=== PATIENT | male | born 1965 | race Caucasian/White ===

== ENCOUNTER 2017-06-27 17:16 | Observation (INO) | payer BC ==
[2017-06-27] MEDS ORDERED: NITROGLYCERIN OINT 1 INCH/GM PACKET TOPICAL STA (17:43)
[2017-06-27] MEDS ORDERED: ASPIRIN 81 MG PO STA (17:43)
--- NOTE | 2017-06-27 17:45 | ED ---
General Adult HPI - General Chief complaint: Chest Pain Stated complaint: Chest pain Time Seen by Provider: 06/27/17 17:20 Source: patient, RN notes reviewed Mode of arrival: ambulatory Limitations: no limitations - History of Present Illness Initial comments: This is a 51-year-old male who presents emergency Department complaining of chest pain intermittently for 2 weeks. Patient states it was subtle and under his left breast but over the last couple of days it is become much more significant and constant. Patient states the pain also goes down his left arm occasionally. Patient denies any shortness of breath or difficulty breathing. Patient denies any headache patient denies numbness weakness per patient denies any lightheadedness dizziness or near syncopal episode. Patient denies any diaphoretic episodes. Patient states he does not know if he has high cholesterol high blood pressure because he does not follow up with physician. Patient states he does smoke however and he has a brother was had multiple heart attacks. Patient denies any abdominal pain. Patient denies nausea vomiting diarrhea. - Related Data Home Medications Medication Instructions Recorded Confirmed No Known Home Medications [No 06/27/17 06/27/17 Known Home Medications] Allergies Allergy/AdvReac Type Severity Reaction Status Date / Time No Known Allergies Allergy Verified 06/27/17 17:37 Review of Systems ROS Statement: Those systems with pertinent positive or pertinent negative responses have been documented in the HPI. ROS Other: All systems not noted in ROS Statement are negative. Past Medical History Past Medical History: No Reported History Additional Past Medical History / Comment(s): rapid heart beat History of Any Multi-Drug Resistant Organisms: None Reported Past Surgical History: Ablation Additional Past Surgical History / Comment(s): ablation Past Psychological History: No Psychological Hx Reported Smoking Status: Current every day smoker Past Alcohol Use History: Occasional Past Drug Use History: None Reported General Exam - General Exam Comments Initial Comments: GENERAL: Patient is well-developed and well-nourished. Patient is nontoxic and well- hydrated and is in mild distress. ENT: Neck is soft and supple. No significant lymphadenopathy is noted. Oropharynx is clear. Moist mucous membranes. Neck has full range of motion without eliciting any pain. EYES: The sclera were anicteric and conjunctiva were pink and moist. Extraocular movements were intact and pupils were equal round and reactive to light. Eyelids were unremarkable. PULMONARY: Unlabored respirations. Good breath sounds bilaterally. No audible rales rhonchi or wheezing was noted. CARDIOVASCULAR: There is a regular rate and rhythm without any murmurs gallops or rubs. ABDOMEN: Soft and nontender with normal bowel sounds. No palpable organomegaly was noted. There is no palpable pulsatile mass. SKIN: Skin is clear with no lesions or rashes and otherwise unremarkable. NEUROLOGIC: Patient is alert and oriented x3. Cranial nerves II through XII are grossly intact. Motor and sensory are also intact. Normal speech, volume and content. Symmetrical smile. MUSCULOSKELETAL: Normal extremities with adequate strength and full range of motion. No lower extremity swelling or edema. No calf tenderness. LYMPHATICS: No significant lymphadenopathy is noted PSYCHIATRIC: Normal psychiatric evaluation. Normal interpersonal interactions appears functionally intact in deals appropriately with others. No signs of depression. No signs of anxiety. Limitations: no limitations Course Vital Signs 06/27/17 06/27/17 06/27/17 17:18 17:21 17:46 Temperature 98.2 F Pulse Rate 93 81 83 Respiratory 18 16 16 Rate Blood Pressure 180/119 171/110 166/99 O2 Sat by Pulse 97 100 98 Oximetry 06/27/17 18:21 Temperature Pulse Rate 74 Respiratory Rate Blood Pressure 140/93 O2 Sat by Pulse 98 Oximetry Medical Decision Making - Medical Decision Making EKG shows a normal sinus rhythm at 83 bpm UT interval 1:30 QRS is 88 QT interval is 372 QTC is 437. Patient's EKG shows no ST segment elevation or depression or T wave abnormalities are noted Chest x-ray shows no acute abnormality - Lab Data Result diagrams: 06/27/17 17:41 06/27/17 17:41 Lab Results 06/27/17 06/27/17 06/27/17 Range/Units 17:41 17:41 17:41 WBC 8.4 (3.8-10.6) k/uL RBC 4.73 (4.30-5.90) m/uL Hgb 15.0 (13.0-17.5) gm/dL Hct 44.8 (39.0-53.0) % MCV 94.8 (80.0-100.0) fL MCH 31.7 (25.0-35.0) pg MCHC 33.5 (31.0-37.0) g/dL RDW 12.9 (11.5-15.5) % Plt Count 307 (150-450) k/uL Neutrophils % 58 % Lymphocytes % 29 % Monocytes % 6 % Eosinophils % 3 % Basophils % 0 % Neutrophils # 4.9 (1.3-7.7) k/uL Lymphocytes # 2.5 (1.0-4.8) k/uL Monocytes # 0.5 (0-1.0) k/uL Eosinophils # 0.2 (0-0.7) k/uL Basophils # 0.0 (0-0.2) k/uL PT (9.0-12.0) sec INR (<1.2) APTT (22.0-30.0) sec Sodium 141 (137-145) mmol/L Potassium 4.5 (3.5-5.1) mmol/L Chloride 107 (98-107) mmol/L Carbon Dioxide 25 (22-30) mmol/L Anion Gap 9 mmol/L BUN 27 H (9-20) mg/dL Creatinine 0.80 (0.66-1.25) mg/dL Est GFR (CKD-EPI)AfAm >90 (>60 ml/min/1.73 sqM) Est GFR (CKD-EPI)NonAf >90 (>60 ml/min/1.73 sqM) Glucose 98 (74-99) mg/dL Calcium 9.5 (8.4-10.2) mg/dL Magnesium 1.9 (1.6-2.3) mg/dL Total Bilirubin 0.4 (0.2-1.3) mg/dL AST 29 (17-59) U/L ALT 33 (21-72) U/L Alkaline Phosphatase 59 (38-126) U/L Total Creatine Kinase 97 (55-170) U/L CK-MB (CK-2) 0.8 (0.0-2.4) ng/mL CK-MB (CK-2) Rel Index 0.8 Troponin I <0.012 (0.000-0.034) ng/mL Total Protein 7.4 (6.3-8.2) g/dL Albumin 4.4 (3.5-5.0) g/dL Amylase 70 (30-110) U/L Lipase 162 (23-300) U/L 06/27/17 Range/Units 17:41 WBC (3.8-10.6) k/uL RBC (4.30-5.90) m/uL Hgb (13.0-17.5) gm/dL Hct (39.0-53.0) % MCV (80.0-100.0) fL MCH (25.0-35.0) pg MCHC (31.0-37.0) g/dL RDW (11.5-15.5) % Plt Count (150-450) k/uL Neutrophils % % Lymphocytes % % Monocytes % % Eosinophils % % Basophils % % Neutrophils # (1.3-7.7) k/uL Lymphocytes # (1.0-4.8) k/uL Monocytes # (0-1.0) k/uL Eosinophils # (0-0.7) k/uL Basophils # (0-0.2) k/uL PT 10.0 (9.0-12.0) sec INR 1.0 (<1.2) APTT 25.4 (22.0-30.0) sec Sodium (137-145) mmol/L Potassium (3.5-5.1) mmol/L Chloride (98-107) mmol/L Carbon Dioxide (22-30) mmol/L Anion Gap mmol/L BUN (9-20) mg/dL Creatinine (0.66-1.25) mg/dL Est GFR (CKD-EPI)AfAm (>60 ml/min/1.73 sqM) Est GFR (CKD-EPI)NonAf (>60 ml/min/1.73 sqM) Glucose (74-99) mg/dL Calcium (8.4-10.2) mg/dL Magnesium (1.6-2.3) mg/dL Total Bilirubin (0.2-1.3) mg/dL AST (17-59) U/L ALT (21-72) U/L Alkaline Phosphatase (38-126) U/L Total Creatine Kinase (55-170) U/L CK-MB (CK-2) (0.0-2.4) ng/mL CK-MB (CK-2) Rel Index Troponin I (0.000-0.034) ng/mL Total Protein (6.3-8.2) g/dL Albumin (3.5-5.0) g/dL Amylase (30-110) U/L Lipase (23-300) U/L Disposition Clinical Impression: Chest pain Disposition: ADMITTED IP TO THIS HOSP Referrals: None,Stated [Primary Care Provider] - 1-2 days Time of Disposition: 19:07
[2017-06-27 17:54] LABS: Basophils % (A) 0 %; Eosinophils # (A) 0.2 k/uL (0-0.7); Eosinophils % (A) 3 %; HCT 44.8 % (39.0-53.0); Lymphocytes # (A) 2.5 k/uL (1.0-4.8); Lymphocytes % (A) 29 %; MCH 31.7 pg (25.0-35.0); MCHC 33.5 g/dL (31.0-37.0); MCV 94.8 fL (80.0-100.0); Mean Platelet Volume 7.4; Monocytes # (A) 0.5 k/uL (0-1.0); Monocytes % (A) 6 %; Neutrophils # (A) 4.9 k/uL (1.3-7.7); Neutrophils % (A) 58 %; Platelet Count 307 k/uL (150-450); RBC 4.73 m/uL (4.30-5.90); RDW 12.9 % (11.5-15.5); WBC 8.4 k/uL (3.8-10.6)
[2017-06-27 18:02] LABS: Partial Thromboplastin Time 25.4 sec (22.0-30.0)
[2017-06-27 18:06] LABS: ALT 33 U/L (21-72); AST 29 U/L (17-59); Albumin 4.4 g/dL (3.5-5.0); Alkaline Phosphatase 59 U/L (38-126); Amylase 70 U/L (30-110); Anion Gap 9 mmol/L; Blood Urea Nitrogen 27 mg/dL (9-20); Calcium 9.5 mg/dL (8.4-10.2); Carbon Dioxide 25 mmol/L (22-30); Chloride 107 mmol/L (98-107); Glucose 98 mg/dL (74-99); Lipase 162 U/L (23-300); Magnesium 1.9 mg/dL (1.6-2.3); Potassium 4.5 mmol/L (3.5-5.1); Sodium 141 mmol/L (137-145); Total Bilirubin 0.4 mg/dL (0.2-1.3); Total Protein 7.4 g/dL (6.3-8.2)
[2017-06-27 18:08] LABS: Creatine Kinase 97 U/L (55-170)
--- NOTE | 2017-06-27 18:10 | XR ---
EXAMINATION TYPE: XR chest 2V DATE OF EXAM: 06/27/2017 COMPARISON: 09/19/2015 HISTORY: Chest pain TECHNIQUE: Frontal and lateral views of the chest are obtained. FINDINGS: Heart and mediastinum are normal. Lungs are clear of infiltrate. There is no pleural effus ion. There are chest leads. Bony thorax is intact. IMPRESSION: Normal chest. No change.
[2017-06-27 18:21] LABS: Creatine Kinase MB 0.8 ng/mL (0.0-2.4); Troponin I <0.012 ng/mL (0.000-0.034)
[2017-06-27] MEDS ORDERED: NITROGLYCERIN SL TABS 0.4 MG TAB SUBLINGUAL PRN (19:07)
[2017-06-27] MEDS ORDERED: ONDANSETRON 4 MG/2 ML VIAL IVP PRN (19:48)
[2017-06-27] MEDS ORDERED: traMADol 50 MG TAB PO PRN (19:48)
[2017-06-27] MEDS ORDERED: NALOXONE 0.4 MG/ML 1 ML VIAL IV PRN (19:48)
[2017-06-27] MEDS ORDERED: ACETAMINOPHEN TAB 325 MG TAB PO PRN (19:48)
--- NOTE | 2017-06-27 19:51 | P.HPIM ---
History of Present Illness H&P Date: 06/27/17 Chief Complaint: chest pain Patient is a 51-year-old male with a past medical history of rapid heart beat with ablation, tobacco use, and frequent alcohol use who presented to the emergency department with complaints of chest pain. In the emergency department he underwent an extensive evaluation. His initial vital signs showed him to be significantly hypertensive. EKG was unremarkable. Chest x- ray was unremarkable. He did have a slightly elevated BUN at 27. He was given an aspirin and Nitropaste was applied. Arrangements were made for observation for chest pain. Patient seen and examined at bedside in the emergency department. He describes left-sided chest pain that began approximately 2 weeks ago. Since that time it has now started radiating to the right side. Today it has felt like a tightness across the center of his chest. He states it is there all the time and does not come and go. He states it is worse with movement and better with rest. He has not been taking any medications for this at home. Today he started having left arm and jaw numbness so he decided to present to the emergency department. He denies any shortness of breath his significant other has noted dyspnea today. He denies nausea, vomiting, lightheadedness, dizziness , and diaphoresis. He reports he has been gaining weight recently. He is supposed to be taking an aspirin daily but has not been. He denies any recent cough, cold, fever, flu. He is unsure why he had a cardiac ablation approximately 2-3 years ago but states he had a racing heart prior to this. Procedure was done in [facility]. He typically smokes 1-2 packs daily and drinks a pint every other night. Review of Systems Pertinent positives and negatives as per HPI remainder of 12 point review of systems is negative. 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 Does not use any assistive devices. - Past Family History Father Additional Family Medical History / Comment(s): COPD, CHF. Paternal grandfather -myocardial infarction Brother(s) Additional Family Medical History / Comment(s): Multiple heart attacks with stent placement, permanent pacemaker Medications and Allergies Home Medications Medication Instructions Recorded Confirmed Type No Known Home Medications [No 06/27/17 06/27/17 History Known Home Medications] Allergies Allergy/AdvReac Type Severity Reaction Status Date / Time No Known Allergies Allergy Verified 06/27/17 17:37 Physical Exam Osteopathic Statement: *. No significant issues noted on an osteopathic structural exam other than those noted in the History and Physical/Consult. Vitals: Vital Signs Temp Pulse Resp BP Pulse Ox 06/27/17 18:21 74 140/93 98 06/27/17 17:46 83 16 166/99 98 06/27/17 17:21 81 16 171/110 100 06/27/17 17:18 98.2 F 93 18 180/119 97 Intake and Output 06/27/17 06/27/17 06/27/17 06:59 14:59 22:59 Other: Weight 95.254 kg General: non toxic, no distress, appears at stated age, normal weight Derm: no unusual rashes/lesions no unusual ecchymoses, warm, dry Head: atraumatic, normocephalic, symmetric Eyes: EOMI, no lid lag, anicteric sclera, pupils equal round reactive to light ENT: Nose and ears atraumatic, no thrush, no pharyngeal erythema Neck: No thyromegaly, no cervical lymphadenopathy, trachea midline, supple Mouth: no lip lesion, mucus membranes moist Cardiovascular: S1S2 reg, no murmur, positive posterior tibial pulse bilateral, no edema, capillary refill less than 2 seconds Lungs: CTA bilateral, no rhonchi, no rales , no accessory muscle use Abdominal: soft, non-tender to palpation, no guarding, no appreciable organomegaly, normal bowel sounds Ext: no gross muscle atrophy, muscle strength 5 out of 5 in all 4 extremities grossly, no contractures, Neuro: CN II-XI grossly intact, light touch intact all 4 extremities, finger to nose within normal limits, Psych: Alert, oriented, appropriate affect Results CBC & Chem 7: 06/27/17 17:41 06/27/17 17:41 Labs: Abnormal Lab Results - Last 24 Hours (Table) 06/27/17 Range/Units 17:41 BUN 27 H (9-20) mg/dL Comments: EKG-normal sinus rhythm at 83, normal axis, normal intervals, no ST-T wave changes Chest x-ray: report reviewed Thrombosis Risk Factor Assmnt - DVT/VTE Prophylaxis DVT/VTE Prophylaxis: Low risk, early ambulation encouraged Assessment and Plan Assessment: Chest pain, some symptom typical others atypical -Serial troponins -Daily aspirin -Cardiology consult -Nothing by mouth after midnight for probable stress test in a.m. -Continue with nitro paste -Check lipid profile Hypertensive urgency on admission -He has improved with nitro paste -Maintain Nitropaste -Follow blood pressures closely may need antihypertensive on discharge -Currently does not have a PCP but would like to follow with Dr. Black on discharge is that his girlfriend currently goes. Tobacco abuse -Avoid nicotine replacement at this point in time -Cessation recommended Alcohol abuse -Doubt impending DTs Surrogate decision-maker: Girlfriend-Kavitha Galan CODE STATUS: Full DVT prophylaxis: SCDs, early ambulation Discussed with: Patient, nursing, ED physician Anticipated discharge: [address]: Home A total of 45 minutes was spent on the care of this complex patient more than 50 % of the time was spent in counseling and care coordination.
[2017-06-27] MEDS ORDERED: MELATONIN 3 MG TABLET PO PRN (21:00)
[2017-06-27] MEDS: NITROGLYCERIN OINT 1 INCH/GM PACKET TOPICAL SCH (23:37)
[2017-06-28 00:32] LABS: Creatine Kinase 75 U/L (55-170)
[2017-06-28 00:45] LABS: Creatine Kinase MB 0.7 ng/mL (0.0-2.4); Troponin I <0.012 ng/mL (0.000-0.034)
[2017-06-28] MEDS: NITROGLYCERIN OINT 1 INCH/GM PACKET TOPICAL SCH (05:12)
[2017-06-28 05:55] LABS: Cholesterol 177 mg/dL (<200); HDL Cholesterol 54 mg/dL (40-60); LDL Cholesterol,Calculated 87 mg/dL (0-99); Triglycerides 180 mg/dL (<150)
[2017-06-28 06:10] LABS: Creatine Kinase 65 U/L (55-170)
[2017-06-28 06:22] LABS: Creatine Kinase MB 0.6 ng/mL (0.0-2.4); Troponin I <0.012 ng/mL (0.000-0.034)
[2017-06-28] MEDS ORDERED: ASPIRIN 81 MG PO SCH (09:00)
[2017-06-28] MEDS ORDERED: ASPIRIN 325 MG TAB PO SCH (09:00)
--- NOTE | 2017-06-28 10:22 | P.CRDCN ---
History of Present Illness Consult date: 06/28/17 Consult reason: chest pain History of present illness: NrrAureliano Larkin is a pleasant 51-year-old male past medical history significant for previous ablation for possible SVT but he is unclear and chronic tobacco use. He denies history of coronary artery disease. He states he doesn't follow regularly with any physician. We have been asked to see him in consultation for complaints of chest pain. He states he has had intermittent pains to the left precordial region that is described as tightness. The symptoms last a few minutes at a time and go away on their own. These pains have been off and on for the past week, but yesterday they came and lasted all day with radiation down the left arm. He notices some mild sob but nothing more than his baseline. He is a smoker since the age of 15 of 2-packs per day. Denies associated dizziness, palpitations, nausea, vomiting or diaphoresis. Cannot specify aggravating or alleviating factors. He states his brohter had an AK in this 50s with stents and pacemaker implantation. EKG on arrival reveals sinus mechanism with no acute ST or T-wave abnormalities. Chest xray is negative for an acute cardiopulmonary process. Laboratory data reviewed, hemoglobin 15, platelets 307, potassium 4.5, magnesium 1.9, creatinine 0.8, cardiac enzymes negative 3, LDL 87, HDL 54. No daily medications or old records to review. Review of Systems At the time of my exam: CONSTITUTIONAL: Denies fever. Denies chills. EYES: Denies blurred vision. Denies vision changes. Denies eye pain. EARS, NOSE, MOUTH & THROAT: Denies headache. Denies sore throat. Denies ear pain. CARDIOVASCULAR: Denies chest pain. Denies shortness of breath. Denies orthopnea. Denies PND. Denies palpitations. RESPIRATORY: Denies cough. GASTROINTESTINAL: Denies abdominal pain. Denies diarrhea. Denies constipation. Denies nausea. Denies vomiting. MUSCULOSKELETAL: Denies myalgias. INTEGUMENTARY: Denies pruitis. Denies rash. NEUROLOGIC: Denies numbness. Denies tingling. Denies weakness. PSYCHIATRIC: Denies anxiety. Denies depression. ENDOCRINE: Denies fatigue. Denies weight change. Denies polydipsia. Denies polyurina. GENITOURINARY: Denies burning, hematuria or urgency with micturation. HEMATOLOGIC: Denies history of anemia. Denies bleeding. Past Medical History Past Medical History: No Reported History Additional Past Medical History / Comment(s): rapid heart beat, past tress test , sciatic nerve pain, chronic lower back pain, occ heartburn. History of Any Multi-Drug Resistant Organisms: None Reported Past Surgical History: Ablation Additional Past Surgical History / Comment(s): ablation 2-3 years ago Past Anesthesia/Blood Transfusion Reactions: No Reported Reaction Additional Past Anesthesia/Blood Transfusion Reaction / Comment(s): clausterphobia Smoking Status: Current every day smoker - Past Family History Father Additional Family Medical History / Comment(s): COPD, CHF. Paternal grandfather -myocardial infarction Brother(s) Additional Family Medical History / Comment(s): Multiple heart attacks with stent placement, permanent pacemaker Mother Family Medical History: Cancer Additional Family Medical History / Comment(s): lung cancer,(smoker) Medications and Allergies Home Medications Medication Instructions Recorded Confirmed Type No Known Home Medications [No 06/27/17 06/27/17 History Known Home Medications] Allergies Allergy/AdvReac Type Severity Reaction Status Date / Time No Known Allergies Allergy Verified 06/27/17 17:37 Physical Exam Vitals: Vital Signs Temp Pulse Pulse Resp BP BP Pulse Ox 06/28/17 04:00 16 06/28/17 03:32 98.2 F 70 16 131/58 95 06/27/17 23:52 98.1 F 66 16 137/81 98 06/27/17 23:48 17 06/27/17 20:39 17 06/27/17 19:50 97.9 F 78 17 155/96 96 06/27/17 19:36 97.9 F 74 18 139/91 18 L 06/27/17 18:21 74 140/93 98 06/27/17 17:46 83 16 166/99 98 06/27/17 17:21 81 16 171/110 100 06/27/17 17:18 98.2 F 93 18 180/119 97 Intake and Output 06/27/17 06/28/17 06/28/17 22:59 06:59 14:59 Other: Voiding Method Toilet Toilet # Voids 2 Weight 104.4 kg Blood pressure 104/69 heart rate 65 afebrile maintaining oxygen saturation on room air GENERAL: This is a 51-year-old male in no apparent distress at the time of my examination. HEENT: Head is atraumatic, normocephalic. Pupils are equal, round. Sclerae anicteric. Conjunctivae are clear. Mucous membranes of the mouth are moist. Neck is supple. There is no jugular venous distention. No carotid bruit is heard. LUNGS: Clear to auscultation no wheezes, rales or rhonchi. No chest wall tenderness is noted on palpation or with deep breathing. HEART: Regular rate and rhythm without murmurs, rubs or gallops. S1 and S2 heard. ABDOMEN: Soft, nontender. Bowel sounds are heard. No organomegaly noted. EXTREMITIES: No evidence of peripheral edema and no calf tenderness noted. VASCULAR: Radial and dorsalis pedis pulses palpated, no evidence of clubbing. NEUROLOGIC: Patient is awake, alert and oriented x3. Results 06/27/17 17:41 06/27/17 17:41 Cardiac Enzymes 06/27/17 06/27/17 06/27/17 Range/Units 17:41 17:41 17:41 WBC 8.4 (3.8-10.6) k/uL RBC 4.73 (4.30-5.90) m/uL Hgb 15.0 (13.0-17.5) gm/dL Hct 44.8 (39.0-53.0) % MCV 94.8 (80.0-100.0) fL MCH 31.7 (25.0-35.0) pg MCHC 33.5 (31.0-37.0) g/dL RDW 12.9 (11.5-15.5) % Plt Count 307 (150-450) k/uL Neutrophils % 58 % Lymphocytes % 29 % Monocytes % 6 % Eosinophils % 3 % Basophils % 0 % Neutrophils # 4.9 (1.3-7.7) k/uL Lymphocytes # 2.5 (1.0-4.8) k/uL Monocytes # 0.5 (0-1.0) k/uL Eosinophils # 0.2 (0-0.7) k/uL Basophils # 0.0 (0-0.2) k/uL PT (9.0-12.0) sec INR (<1.2) APTT (22.0-30.0) sec Sodium 141 (137-145) mmol/L Potassium 4.5 (3.5-5.1) mmol/L Chloride 107 (98-107) mmol/L Carbon Dioxide 25 (22-30) mmol/L Anion Gap 9 mmol/L BUN 27 H (9-20) mg/dL Creatinine 0.80 (0.66-1.25) mg/dL Est GFR (CKD-EPI)AfAm >90 (>60 ml/min/1.73 sqM) Est GFR (CKD-EPI)NonAf >90 (>60 ml/min/1.73 sqM) Glucose 98 (74-99) mg/dL Calcium 9.5 (8.4-10.2) mg/dL Magnesium 1.9 (1.6-2.3) mg/dL Total Bilirubin 0.4 (0.2-1.3) mg/dL AST 29 (17-59) U/L ALT 33 (21-72) U/L Alkaline Phosphatase 59 (38-126) U/L Total Creatine Kinase 97 (55-170) U/L CK-MB (CK-2) 0.8 (0.0-2.4) ng/mL CK-MB (CK-2) Rel Index 0.8 Troponin I <0.012 (0.000-0.034) ng/mL Total Protein 7.4 (6.3-8.2) g/dL Albumin 4.4 (3.5-5.0) g/dL Triglycerides (<150) mg/dL Cholesterol (<200) mg/dL LDL Cholesterol, Calc (0-99) mg/dL HDL Cholesterol (40-60) mg/dL Amylase 70 (30-110) U/L Lipase 162 (23-300) U/L 06/27/17 06/28/17 06/28/17 Range/Units 17:41 00:03 05:27 WBC (3.8-10.6) k/uL RBC (4.30-5.90) m/uL Hgb (13.0-17.5) gm/dL Hct (39.0-53.0) % MCV (80.0-100.0) fL MCH (25.0-35.0) pg MCHC (31.0-37.0) g/dL RDW (11.5-15.5) % Plt Count (150-450) k/uL Neutrophils % % Lymphocytes % % Monocytes % % Eosinophils % % Basophils % % Neutrophils # (1.3-7.7) k/uL Lymphocytes # (1.0-4.8) k/uL Monocytes # (0-1.0) k/uL Eosinophils # (0-0.7) k/uL Basophils # (0-0.2) k/uL PT 10.0 (9.0-12.0) sec INR 1.0 (<1.2) APTT 25.4 (22.0-30.0) sec Sodium (137-145) mmol/L Potassium (3.5-5.1) mmol/L Chloride (98-107) mmol/L Carbon Dioxide (22-30) mmol/L Anion Gap mmol/L BUN (9-20) mg/dL Creatinine (0.66-1.25) mg/dL Est GFR (CKD-EPI)AfAm (>60 ml/min/1.73 sqM) Est GFR (CKD-EPI)NonAf (>60 ml/min/1.73 sqM) Glucose (74-99) mg/dL Calcium (8.4-10.2) mg/dL Magnesium (1.6-2.3) mg/dL Total Bilirubin (0.2-1.3) mg/dL AST (17-59) U/L ALT (21-72) U/L Alkaline Phosphatase (38-126) U/L Total Creatine Kinase 75 65 (55-170) U/L CK-MB (CK-2) 0.7 0.6 (0.0-2.4) ng/mL CK-MB (CK-2) Rel Index 0.9 0.9 Troponin I <0.012 <0.012 (0.000-0.034) ng/mL Total Protein (6.3-8.2) g/dL Albumin (3.5-5.0) g/dL Triglycerides (<150) mg/dL Cholesterol (<200) mg/dL LDL Cholesterol, Calc (0-99) mg/dL HDL Cholesterol (40-60) mg/dL Amylase (30-110) U/L Lipase (23-300) U/L 06/28/17 Range/Units 05:27 WBC (3.8-10.6) k/uL RBC (4.30-5.90) m/uL Hgb (13.0-17.5) gm/dL Hct (39.0-53.0) % MCV (80.0-100.0) fL MCH (25.0-35.0) pg MCHC (31.0-37.0) g/dL RDW (11.5-15.5) % Plt Count (150-450) k/uL Neutrophils % % Lymphocytes % % Monocytes % % Eosinophils % % Basophils % % Neutrophils # (1.3-7.7) k/uL Lymphocytes # (1.0-4.8) k/uL Monocytes # (0-1.0) k/uL Eosinophils # (0-0.7) k/uL Basophils # (0-0.2) k/uL PT (9.0-12.0) sec INR (<1.2) APTT (22.0-30.0) sec Sodium (137-145) mmol/L Potassium (3.5-5.1) mmol/L Chloride (98-107) mmol/L Carbon Dioxide (22-30) mmol/L Anion Gap mmol/L BUN (9-20) mg/dL Creatinine (0.66-1.25) mg/dL Est GFR (CKD-EPI)AfAm (>60 ml/min/1.73 sqM) Est GFR (CKD-EPI)NonAf (>60 ml/min/1.73 sqM) Glucose (74-99) mg/dL Calcium (8.4-10.2) mg/dL Magnesium (1.6-2.3) mg/dL Total Bilirubin (0.2-1.3) mg/dL AST (17-59) U/L ALT (21-72) U/L Alkaline Phosphatase (38-126) U/L Total Creatine Kinase (55-170) U/L CK-MB (CK-2) (0.0-2.4) ng/mL CK-MB (CK-2) Rel Index Troponin I (0.000-0.034) ng/mL Total Protein (6.3-8.2) g/dL Albumin (3.5-5.0) g/dL Triglycerides 180 H (<150) mg/dL Cholesterol 177 (<200) mg/dL LDL Cholesterol, Calc 87 (0-99) mg/dL HDL Cholesterol 54 (40-60) mg/dL Amylase (30-110) U/L Lipase (23-300) U/L Coagulation 06/27/17 Range/Units 17:41 PT 10.0 (9.0-12.0) sec APTT 25.4 (22.0-30.0) sec Lipids 06/28/17 Range/Units 05:27 Triglycerides 180 H (<150) mg/dL Cholesterol 177 (<200) mg/dL HDL Cholesterol 54 (40-60) mg/dL CBC 06/27/17 Range/Units 17:41 WBC 8.4 (3.8-10.6) k/uL RBC 4.73 (4.30-5.90) m/uL Hgb 15.0 (13.0-17.5) gm/dL Hct 44.8 (39.0-53.0) % Plt Count 307 (150-450) k/uL Comprehensive Metabolic Panel 06/27/17 Range/Units 17:41 Sodium 141 (137-145) mmol/L Potassium 4.5 (3.5-5.1) mmol/L Chloride 107 (98-107) mmol/L Carbon Dioxide 25 (22-30) mmol/L BUN 27 H (9-20) mg/dL Creatinine 0.80 (0.66-1.25) mg/dL Glucose 98 (74-99) mg/dL Calcium 9.5 (8.4-10.2) mg/dL AST 29 (17-59) U/L ALT 33 (21-72) U/L Alkaline Phosphatase 59 (38-126) U/L Total Protein 7.4 (6.3-8.2) g/dL Albumin 4.4 (3.5-5.0) g/dL Current Medications Generic Name Dose Route Start Last Admin Trade Name Freq PRN Reason Stop Dose Admin Acetaminophen 650 mg 06/27/17 19:48 Tylenol Tab PO Q6HR PRN Mild Pain or Fever > 100.5 Aspirin 81 mg 06/28/17 09:00 Aspirin PO DAILY LILLIAN Melatonin 3 mg 06/27/17 21:00 Melatonin PO HS PRN Insomnia Naloxone HCl 0.2 mg 06/27/17 19:48 Narcan IV Q2M PRN Opioid Reversal Nitroglycerin 0.4 mg 06/27/17 19:07 Nitrostat SUBLINGUAL Q5M PRN Chest Pain Ondansetron HCl 4 mg 06/27/17 19:48 Zofran IVP Q8HR PRN Nausea And Vomiting Tramadol HCl 50 mg 06/27/17 19:48 Ultram PO Q6H PRN Moderate Pain Intake and Output 06/27/17 06/28/17 06/28/17 22:59 06:59 14:59 Other: Voiding Method Toilet Toilet # Voids 2 Weight 104.4 kg 06/27/17 17:41 06/27/17 17:41 Assessment and Plan Assessment: ASSESSMENT 1. Chest pain, atypical. Acute coronary event has been ruled out with no EKG evidence of ischemia and negative cardiac enzymes. 2. Chronic tobacco abuse 3. Family history of premature cardiac disease PLAN Obtain 2-D echocardiogram and Doppler study to assess cardiac structure and function. Perform stress echocardiogram to assess for stress-induced ischemia. The above diagnostic testing is normal he is stable from a cardiac perspective. Thank you kindly for this consultation. Nurse Practitioner note has been reviewed, I agree with a documented findings and plan of care. Patient was seen and examined.
[2017-06-28 12:04] VITALS: BP 122/82; PULSE 78; RESP 17; TEMP 98.2
--- NOTE | 2017-06-28 12:22 | P.STRESS ---
- Stress Test Note Stress Test Results/Findings: Exam Performed: stress echo exercise with con Exam Date: 06/28/17 Reason for Exam: CHEST PAIN Height: 5 ft 10 in Weight: 104.4 kg Protocol: NOEMI Stage: 3 Duration of Exercise: 9:00 Resting Heart Rate: 76 Resting Blood Pressure: 139/91 Maximum Achieved Heart Rate: 143 Maximum Achieved Blood Pressure: 199/95 85% PMHR: 145 100% PMHR: 170 METS: 10.3 Technologist Comment: Stress Test Results/Findings: This is a 51-year-old gentleman who was admitted to the hospital with a chest pains. His EKGs and cardiac enzymes were negative. Baseline EKG showed sinus rhythm with normal CA interval and QRS duration. Blood pressure at rest is 139/ 91 with pulse rate of 76. Patient walked on the Noemi protocol for 9 minutes achieving a maximal rate of 143 with a blood pressure 199/95. EKGs taken during and after exercise did not reveal any changes to suggest ischemia. Echo data: Baseline echo images show normal wall motion and thickening. Exercise echo images showed augmentation of wall motion and thickening in all the segments. Final impression: #1. Negative stress test #2. Negative stress echo
--- NOTE | 2017-06-28 15:13 | P.DS ---
Providers Date of admission: 06/27/17 19:07 Expected date of discharge: 06/28/17 Attending physician: Nakita Clarke DO Consults: 06/27/17 19:07 Consult Physician Urgent Consulting Provider: [facility] Consult Reason/Comments: Chest pain Do you want consulting provider notified?: Yes Primary care physician: Stated None Hospital Course: 51-year-old male with a past medical history of rapid heart beat with ablation, tobacco use, and frequent alcohol use who presented to the emergency department with complaints of chest pain. He describes left-sided chest pain that began approximately 2 weeks ago. Since that time it has now started radiating to the right side. Today it has felt like a tightness across the center of his chest. He stated it is there all the time and does not come and go. He stated it is worse with movement and better with rest. He has not been taking any medications for this at home. He was also having left arm and jaw numbness so he decided to present to the emergency department. He denied any shortness of breath his significant other has noted dyspnea today. He denied nausea, vomiting, lightheadedness, dizziness, and diaphoresis. He reported he has been gaining weight recently. He is supposed to be taking an aspirin daily but has not been. He denied any recent cough, cold, fever, flu. He was unsure why he had a cardiac ablation approximately 2-3 years ago but states he had a racing heart prior to this. Procedure was done in [facility]. He typically smokes 1-2 packs daily and drinks a pint every other night. In the emergency department he underwent an extensive evaluation. His initial vital signs showed him to be significantly hypertensive. EKG was unremarkable. Chest x-ray was unremarkable. He did have a slightly elevated BUN at 27. He was given an aspirin and Nitropaste was applied. Arrangements were made for observation for chest pain. Patient was evaluated by cardiology who recommended performing a echo stress testing. His troponins were cycled and they were all within normal limits. The echo stress test was done and came back within normal limits. He was eventually cleared for discharge by cardiology. He was discharged in a stable condition, he was told to follow-up with primary care physician as soon as possible after discharge. Plan - Discharge Summary Discharge Rx Participant: No New Discharge Prescriptions: No Action No Known Home Medications [No Known Home Medications] Discharge Medication List No Known Home Medications [No Known Home Medications] 06/27/17 [History] Follow up Appointment(s)/Referral(s): Chris Black MD [STAFF PHYSICIAN] - 1-2 Days Discharge Disposition: HOME SELF-CARE
--- NOTE | 2017-06-29 09:52 | ECHOF ---
Referral Reason:cp MEASUREMENTS -------- HEIGHT: 180.3 cm WEIGHT: 104.3 kg BP: 104/69 IVSd: 1.2 cm (0.6 - 1.1) LVIDd: 4.8 cm (3.9 - 5.3) LVPWd: 1.5 cm (0.6 - 1.1) IVSs: 2.0 cm LVIDs: 3.1 cm LVPWs: 1.7 cm Ao Diam: 3.3 cm (2.0 - 3.7) AV Cusp: 2.4 cm (1.5 - 2.6) LA Diam: 2.6 cm (2.7 - 3.8) MV EXCURSION: 15.271 mm (> 18.000) MV EF SLOPE: 84 mm/s (70 - 150) EPSS: 0.8 cm MV E Esau: 0.53 m/s MV DecT: 271 ms MV A Esau: 0.74 m/s MV E/A Ratio: 0.72 RAP: 5.00 mmHg RVSP: 9.94 mmHg FINDINGS -------- Sinus rhythm. This was a technically difficult study with suboptimal views. The left ventricular size is normal. There is mild concentric left ventricular hypertrophy. Overa ll left ventricular systolic function is normal with, an EF between 55 - 60 %. The right ventricle is normal in size and function. The left atrium is normal in size. The right atrium is normal in size. 1.5mg of Definity was utilized for enhancement of images The aortic valve is trileaflet, and appears structurally normal. No aortic stenosis or regurgitation. The mitral valve is normal. There is trace mitral regurgitation. Trace tricuspid regurgitation present. There is no evidence of pulmonary hypertension. The right ventricular systolic pressure, as measured by Doppler, is 9.94mmHg. The pulmonic valve was not well visualized. There is no pulmonic regurgitation present. The aortic root size is normal. Normal inferior vena cava with normal inspiratory collapse consistent with estimated right atrial pre ssure of 5 mmHg. There is no pericardial effusion. CONCLUSIONS -------- 1. Sinus rhythm. 2. This was a technically difficult study with suboptimal views. 3. The left ventricular size is normal. 4. There is mild concentric left ventricular hypertrophy. 5. Overall left ventricular systolic function is normal with, an EF between 55 - 60 %. 6. The left atrium is normal in size. 7. Lumason used 8. The aortic valve is trileaflet, and appears structurally normal. No aortic stenosis or regurgitati on. 9. There is trace mitral regurgitation. 10. Trace tricuspid regurgitation present. 11. There is no evidence of pulmonary hypertension. 12. There is no pulmonic regurgitation present. 13. The aortic root size is normal. 14. Normal inferior vena cava with normal inspiratory collapse consistent with estimated right atrial pressure of 5 mmHg. 15. There is no pericardial effusion. SCRUFF WORKER: Marleny Florian RDCS
--- NOTE | 2017-07-01 17:51 | ECHOS ---
- Stress Test Note Stress Test Results/Findings: Exam Performed: stress echo exercise with con Exam Date: 06/28/17 Reason for Exam: CHEST PAIN Height: 5 ft 10 in Weight: 104.4 kg Protocol: NOEMI Stage: 3 Duration of Exercise: 9:00 Resting Heart Rate: 76 Resting Blood Pressure: 139/91 Maximum Achieved Heart Rate: 143 Maximum Achieved Blood Pressure: 199/95 85% PMHR: 145 100% PMHR: 170 METS: 10.3 Technologist Comment: Stress Test Results/Findings: This is a 51-year-old gentleman who was admitted to the hospital with a chest pains. His EKGs and cardiac enzymes were negative. Baseline EKG showed sinus rhythm with normal SD interval and QRS duration. Blood pressure at rest is 139/ 91 with pulse rate of 76. Patient walked on the Noemi protocol for 9 minutes achieving a maximal rate of 143 with a blood pressure 199/95. EKGs taken during and after exercise did not reveal any changes to suggest ischemia. Echo data: Baseline echo images show normal wall motion and thickening. Exercise echo images showed augmentation of wall motion and thickening in all the segments. Final impression: #1. Negative stress test #2. Negative stress echo MTDD
== END 2017-06-28 14:30 | disposition home or self-care (01) ==
LOC: EC 17:16 → 3OBS 19:07
PROVIDERS: ADMIT Internal Medicine; ATTEND Internal Medicine
DX: R07.89 Other chest pain (principal); M79.602 Pain in left arm; R00.0 Tachycardia, unspecified; R06.02 Shortness of breath; R20.0 Anesthesia of skin; T39.016A Underdosing of aspirin, initial encounter; I16.0 Hypertensive urgency; F17.210 Nicotine dependence, cigarettes, uncomplicated; F10.10 Alcohol abuse, uncomplicated; Z82.5 Family history of asthma and other chronic lower respiratory diseases; Z82.49 Family history of ischemic heart disease and other diseases of the circulatory system; Z80.1 Family history of malignant neoplasm of trachea, bronchus and lung
CPT/HCPCS: 36415; 71046; 80053; 80061; 82150; 82550; 82553; 83690; 83735; 84484; 85025; 85610; 85730; 93005; 93017; 93306; 93350

== ENCOUNTER → 2020-03-23 | Outpatient (CLI) | payer BC ==
--- NOTE | 2020-03-23 19:26 | CONS ---
CONSULTATION DATE OF SERVICE: 03/23/2020 HISTORY OF PRESENT ILLNESS: This patient is a 54-year-old gentleman who has been evaluated in the sleep center for possible obstructive sleep apnea-hypopnea syndrome. HISTORY OF PRESENT ILLNESS/SLEEP-WAKE EVALUATION: Patient's usual sleep schedule is from 8 p.m. until 4 or 4:30 a.m. on working days and until 6 or 7 a.m. on weekends. No problems with falling asleep, although he has a TV set in the bedroom. He usually sleeps on the side position. He snores and has witnessed episodes of stopped breathing during sleep. He grinds his teeth. He wakes up with a dry mouth two times from sleep, one episode with nocturia. He has been told about a lot of violent movements during sleep. No history of hypnagogical hallucinations, sleep paralysis or cataplexy. [place] Sleepiness Scale is 6. PAST MEDICAL HISTORY: Positive for episodes of cardiac arrhythmia. PAST SURGICAL HISTORY: Cardiac ablation procedure. MEDICATIONS: None. SOCIAL HISTORY: Positive for smoking for 30 years, up to 2 packs a day. Alcohol consumption occasional. FAMILY HISTORY: Hypertension, heart problems, hyperlipidemia, arthritis, sleep apnea, cancer, acid reflux, diabetes, crib . REVIEW OF SYSTEMS: Snoring, awakenings from sleep. PHYSICAL EXAMINATION: GENERAL: A pleasant gentleman without distress. VITAL SIGNS: BP 162/96, HR 92, RR 15, height 5 feet 9-1/2 inches, weight 227 pounds. Body mass index 33. Temperature 97.7, oxygen saturation at room air 98%. HEENT: PERRLA, EOMI. Evaluation of oropharynx showed tongue protrudes midline. Low position of soft palate. Mallampati III. NECK: Supple. No JVD. Thyroid is not palpable. Wide neck; 17 inches in circumference. LUNGS: Clear to percussion and to auscultation. Good air exchange. No wheezing or rhonchi. HEART: S1, S2 regular. No murmurs, gallops or rubs. ABDOMEN: Slightly obese. EXTREMITIES: No clubbing or cyanosis. TOOL DISTRIBUTOR: Awake, alert, and oriented X3. Cranial nerves 2 to 7 intact. There is no fasciculation or atrophy. noted. No focal deficits observed. IMPRESSION: 1. Snoring, witnessed episodes of stopped breathing during sleep, low position of soft palate, wide neck; obstructive sleep apnea-hypopnea syndrome. 2. History of cardiac arrhythmia status post cardiac ablation. 3. Hypertension in the office. 4. Obesity; body mass index 37. 5. Significant amount of [id number] movements; possibly REM sleep behavioral disorder. PLAN: 1. Polysomnography for evaluation of patient's breathing during sleep. 2. CPAP/BiPAP titration if sleep study confirms obstructive sleep apnea-hypopnea syndrome. 3. Preferable position during sleep on the side. 4. No driving if patient feels any sleepiness. 5. I will see patient for follow up visit to explain results of testing and following plan. 6. Precautions related to possible REM sleep behavioral disorder. 7. Ronald-sized bed. 8. No access to guns or fire during sleep time. 9. Close doors and windows. Thank you very much for referring this patient for consultation. Sincerely, Abdullahi Crawford MD, PhD, FAASM Diplomat of [place] [employer] [place] [employer] Enrollment Processor of [facility] [place] MMODL / IJN: [id number] /
== END | disposition home or self-care (01) ==
LOC: SLEEP 16:26
PROVIDERS: ATTEND Internal Medicine
DX: G47.33 Obstructive sleep apnea (adult) (pediatric) (principal); I10 Essential (primary) hypertension; E66.9 Obesity, unspecified; Z68.37 Body mass index [BMI] 37.0-37.9, adult; Z86.79 Personal history of other diseases of the circulatory system
CPT/HCPCS: 99211

== ENCOUNTER 2022-09-30 20:41 | Inpatient (IN) | payer BC ==
[2022-09-30] MEDS ORDERED: NITROGLYCERIN SL TABS 0.4 MG TAB SUBLINGUAL STA (20:58)
[2022-09-30] MEDS ORDERED: ASPIRIN 81 MG PO STA (20:58)
--- NOTE | 2022-09-30 21:21 | ED ---
Chest Pain HPI - General Chief Complaint: Chest Pain Stated Complaint: high blood pressure, chest pain, sob Time Seen by Provider: 09/30/22 20:58 Source: patient Mode of arrival: ambulatory Limitations: no limitations - History of Present Illness Initial Comments: This patient is a 57-year-old man who presents with complaint that he is not feeling well. He lists a constellation of symptoms including epigastric pain going back approximately 4-5 days. It is aching. He also has not been sleeping well going back weeks to months. He has noticed a decrease in his exercise capacity. Patient has had some occasional associated nausea. Denies other anginal type symptoms. The patient does have family history of cardiac disease and positive smoking history and is not had previous cardiac workup. MD Complaint: chest pain Onset/Timin -: days(s) Onset: during rest Pain Location: epigastric Pain Radiation: none Severity: moderate Quality: aching Consistency: constant Improves With: nothing Worsens With: nothing Anginal Symptoms: nausea Treatments Prior to Arrival: none - Related Data Previous Rx's Medication Instructions Recorded Aspirin 81 mg PO DAILY tab 10/04/22 Atorvastatin Calcium 10 mg PO DAILY #90 tablet 10/04/22 Furosemide [Lasix] 40 mg PO DAILY #90 tab 10/04/22 Glimepiride [Amaryl] 1 mg PO AC-BRKFST #30 tab 10/04/22 Losartan [Cozaar] 50 mg PO DAILY #90 tab 10/04/22 Spironolactone [Aldactone] 25 mg PO DAILY #90 tab 10/04/22 carvediloL [Coreg] 3.125 mg PO BID-W/MEALS #180 tab 10/04/22 Allergies Allergy/AdvReac Type Severity Reaction Status Date / Time No Known Allergies Allergy Verified 09/30/22 21:42 Review of Systems ROS Statement: Those systems with pertinent positive or pertinent negative responses have been documented in the HPI. ROS Other: All systems not noted in ROS Statement are negative. Constitutional: Denies: fever, chills Respiratory: Denies: cough, dyspnea Cardiovascular: Reports: chest pain. Denies: palpitations, orthopnea, edema, syncope Gastrointestinal: Reports: nausea. Denies: vomiting, diarrhea, melena, hematochezia Genitourinary: Denies: dysuria, hematuria Musculoskeletal: Denies: back pain Skin: Denies: rash Neurological: Denies: headache, weakness, numbness EKG Findings - EKG Results: EKG: interpreted by ERMD, sinus rhythm (Rate 86 bpm) - Blocks, [place], Hypertrophy, ST Abn: AV and intraventricular conduction: left bundle branch block (fixed/intermittent, complete/incomplete) Past Medical History Past Medical History: No Reported History, GERD/Reflux Additional Past Medical History / Comment(s): rapid heart beat, past, sciatic nerve pain, chronic lower back pain, occ heartburn. History of Any Multi-Drug Resistant Organisms: None Reported Past Surgical History: Ablation Additional Past Surgical History / Comment(s): ablation 2-3 years ago Past Anesthesia/Blood Transfusion Reactions: No Reported Reaction Additional Past Anesthesia/Blood Transfusion Reaction / Comment(s): clausterphobia Past Psychological History: No Psychological Hx Reported Smoking Status: Current every day smoker Past Alcohol Use History: Occasional Past Drug Use History: None Reported - Past Family History Father Additional Family Medical History / Comment(s): COPD, CHF. Paternal grandfather-myocardial infarction Brother(s) Additional Family Medical History / Comment(s): Multiple heart attacks with stent placement, permanent pacemaker Mother Family Medical History: Cancer Additional Family Medical History / Comment(s): lung cancer,(smoker) General Exam Limitations: no limitations General appearance: alert, in no apparent distress Head exam: Present: atraumatic, normocephalic Eye exam: Present: normal appearance. Absent: scleral icterus, conjunctival injection ENT exam: Present: normal oropharynx Respiratory exam: Present: normal lung sounds bilaterally. Absent: respiratory distress, wheezes, rales, rhonchi, stridor Cardiovascular Exam: Present: regular rate, normal rhythm, normal heart sounds. Absent: systolic murmur, diastolic murmur, rubs, gallop GI/Abdominal exam: Present: soft, tenderness (There is mild epigastric tenderness without rebound or guarding). Absent: distended, guarding, rebound, rigid, mass, pulsatile mass, hernia Extremities exam: Present: normal inspection, normal capillary refill. Absent: pedal edema, calf tenderness Back exam: Present: normal inspection. Absent: CVA tenderness (R), CVA tenderness (L) Neurological exam: Present: alert Skin exam: Present: warm, dry, intact, normal color. Absent: rash Course Vital Signs 0609/30/22 10/01/22 20:51 22:18 01:02 Temperature 98.0 F 98.1 F Pulse Rate 91 93 Pulse Rate [ 90 Pulse Oximetery ] Respiratory 18 18 18 Rate Blood Pressure 176/107 153/114 Blood Pressure 169/62 [Left Arm] O2 Sat by Pulse 98 95 96 Oximetry 10/01/22 01:13 Temperature Pulse Rate 65 Pulse Rate [ Pulse Oximetery ] Respiratory 18 Rate Blood Pressure 133/69 Blood Pressure [Left Arm] O2 Sat by Pulse 95 Oximetry Chest Pain MDM - [facility] Patient had chest x-ray which I interpreted as being negative for acute infiltrate, pneumothorax, congestive heart failure Patient is 57-year-old man who will be admitted to have serial cardiac enzymes, telemetry monitoring, cardiology consultation. Was pt. sent in by a medical professional or institution (, PA, POLYSOMNOGRAPHY TECHNOLOGIST, urgent care, hospital, or senior living...) When possible be specific @ -[No] Did you speak to anyone other than the patient for history (EMS, parent, family, police, friend...)? What history was obtained from this source @ -[No] Did you review nursing and triage notes (agree or disagree)? Why? @ -[I reviewed and agree with nursing and triage notes] Were old charts reviewed (outside hosp., previous admission, EMS record, old EKG, old radiological studies, urgent care reports/EKG's, senior living records)? Report findings @ -[No old charts were reviewed] Differential Diagnosis (chest pain, altered mental status, abdominal pain women, abdominal pain men, vaginal bleeding, weakness, fever, dyspnea, syncope, headache, dizziness, GI bleed, back pain, seizure, CVA, palpatations, mental health, musculoskeletal)? @ -[Differential Chest Pain: Stable Angina, Unstable Angina, STEMI, NSTEMI Aortic Dissection, Pneumothorax, Musculoskeletal, Esophageal Spasm GERD, Cholecystitis, Pancreatitis, Zoster, this is not meant to be an all-inclusive list. EKG interpreted by me (3pts min.). @ -[As above] X-rays interpreted by me (1pt min.). @ -[As above CT interpreted by me (1pt min.). @ -[None done] U/S interpreted by me (1pt. min.). @ -[None done] What testing was considered but not performed or refused? (CT, X-rays, U/S, labs)? Why? @ -[None] What meds were considered but not given or refused? Why? @ -[None] Did you discuss the management of the patient with other professionals (michelle mckeon ifamilia Garcia, PA, POLYSOMNOGRAPHY TECHNOLOGIST, lab, RT, psych nurse, social media coordinator, video tape duplicator, teacher, interface control officer, counter caser)? Give summary @ -[Case discussed with admitting physician Was smoking cessation discussed for >3mins.? @ -[No] Was critical care preformed (if so, how long)? @ -[No] Were there social determinants of health that impacted care today? How? (Homelessness, low income, unemployed, alcoholism, drug addiction, transportation, low edu. Level, literacy, decrease access to med. care, care home, rehab)? @ -[No] Was there de-escalation of care discussed even if they declined (Discuss DNR or withdrawal of care, Hospice)? DNR status @ -[No] What co-morbidities impacted this encounter? (DM, HTN, Smoking, COPD, CAD, Cancer, CVA, ARF, Chemo, Hep., AIDS, mental health diagnosis, sleep apnea, morbid obesity)? @ -[None] Was patient admitted / discharged? Hospital course, mention meds given and route, prescriptions, significant lab abnormalities, going to OR and other pertinent info. @ -[hospital course] Undiagnosed new problem with uncertain prognosis? @ -[No] Drug Therapy requiring intensive monitoring for toxicity (Heparin, Nitro, Insulin, Cardizem)? @ -[No] Were any procedures done? @ -[No] Diagnosis/symptom? @ -[Chest pain, acute Acute, or Chronic, or Acute on Chronic? @ -[default] Uncomplicated (without systemic symptoms) or Complicated (systemic symptoms)? @ -[Uncomplicated Side effects of treatment? @ -[No] Exacerbation, Progression, or Severe Exacerbation? @ -[No] Poses a threat to life or bodily function? How? (Chest pain, [place], [place], pneumonia, PE, COPD, DKA, ARF, appy, cholecystitis, CVA, Diverticulitis, Homicidal, Suicidal, threat to staff... and all critical care pts) @ -[Undetermined, though chest pain of cardiac origin may progress to [place]/ Disposition Clinical Impression: Chest pain Disposition: ADMITTED IP TO THIS HOSP Condition: Good Is patient prescribed a controlled substance at d/c from ED?: No
--- NOTE | 2022-09-30 21:21 | XR ---
EXAMINATION TYPE: XR chest 2V DATE OF EXAM: 09/30/2022 9:16 PM COMPARISON: Chest x-ray 06/27/2017 TECHNIQUE: XR chest 2V . CLINICAL INDICATION:Male, 57 years old with history of Chest Pain; FINDINGS: Lungs/Pleura: Increased lucency of the lung apices and coarsened interstitial markings bilaterally, c onsistent with COPD changes. No focal airspace consolidation. No pneumothorax or pleural effusion. Pulmonary vascularity: Unremarkable. Heart/mediastinum: Cardiomediastinal silhouette is unremarkable. Musculoskeletal: No acute osseous pathology. IMPRESSION: 1. No acute cardiopulmonary disease process. 2. COPD changes.
[2022-09-30 22:39] LABS: Basophils % (A) 0 %; Eosinophils # (A) 0.1 k/uL (0-0.7); Eosinophils % (A) 2 %; HCT 46.1 % (39.0-53.0); HGB 15.1 gm/dL (13.0-17.5); Lymphocytes # (A) 2.3 k/uL (1.0-4.8); Lymphocytes % (A) 28 %; MCH 32.5 pg (25.0-35.0); MCHC 32.7 g/dL (31.0-37.0); MCV 99.5 fL (80.0-100.0); Monocytes # (A) 0.4 k/uL (0-1.0); Monocytes % (A) 5 %; Neutrophils # (A) 5.4 k/uL (1.3-7.7); Neutrophils % (A) 64 %; Platelet Count 253 k/uL (150-450); RBC 4.63 m/uL (4.30-5.90); RDW 13.4 % (11.5-15.5); WBC 8.4 k/uL (3.8-10.6)
[2022-09-30 22:54] LABS: Prothrombin Time 10.3 sec (9.0-12.0)
[2022-09-30 22:55] LABS: Partial Thromboplastin Time 23.6 sec (22.0-30.0)
[2022-09-30 23:04] LABS: ALT 136 U/L (4-49); AST 136 U/L (17-59); African American GFR (CKD) >90 (>60 ml/min/1.73 sqM); Albumin 3.8 g/dL (3.5-5.0); Alkaline Phosphatase 74 U/L (38-126); Anion Gap 6 mmol/L; Blood Urea Nitrogen 19 mg/dL (9-20); Carbon Dioxide 23 mmol/L (22-30); Chloride 109 mmol/L (98-107); Glucose 126 mg/dL (74-99); Magnesium 1.8 mg/dL (1.6-2.3); Non-African American GFR(CKD) >90 (>60 ml/min/1.73 sqM); Potassium 4.3 mmol/L (3.5-5.1); Sodium 138 mmol/L (137-145); Total Bilirubin 0.7 mg/dL (0.2-1.3); Total Protein 6.4 g/dL (6.3-8.2)
[2022-10-01] MEDS ORDERED: NITROGLYCERIN SL TABS 0.4 MG TAB SUBLINGUAL PRN (00:03)
[2022-10-01] MEDS ORDERED: SODIUM CHLORIDE 0.9% 1,000 ML IV SCH (00:15)
--- NOTE | 2022-10-01 07:13 | CT ---
EXAMINATION TYPE: CT chest angio for PE CT DLP: 568 mGycm, Automated exposure control for dose reduction was used. DATE OF EXAM: 10/01/2022 1:45 AM COMPARISON: Chest radiograph from one day prior CLINICAL INDICATION:Male, 57 years old with history of chest pain, possible PE; TECHNIQUE/CONTRAST: CTA scan of the thorax is performed with IV Contrast, patient injected with 100 mL of Isovue 370, pul monary embolism protocol. MIP images are created and reviewed [facility] FINDINGS: Pulmonary Artery: There is no evidence for a filling defect within the pulmonary vasculature to sugge st acute pulmonary embolism. The pulmonary artery is of normal size. Lungs/Pleura: Intralobular septal thickening. Posterior dependent subsegmental atelectasis. Trace william ateral pleural effusions. No evidence of focal consolidation, pleural effusion or pneumothorax. Airway: Large airways are patent. Heart: The heart is mildly enlarged for size. Vasculature: No evidence of aortic aneurysm. Mediastinum: No gross evidence of adenopathy. Prominent mediastinal lymph nodes noted likely secondar y to suspected underlying pulmonary vascular congestion/congestive heart failure. Musculoskeletal: No acute osseous abnormalities Soft Tissues: Unremarkable. Lower neck: No significant findings. Upper Abdomen: gallbladder wall prominence can be seen in setting of congestive heart failure. IMPRESSION: 1. No evidence of pulmonary embolism. 2. Cardiomegaly, pulmonary vascular congestion, trace pleural effusions correlate with serum BNP for congestive heart failure.
[2022-10-01] MEDS ORDERED: FUROSEMIDE 10 MG/ML 4 ML VIAL IV PRN (08:10)
[2022-10-01] MEDS: ASPIRIN 81 MG PO SCH (09:09)
[2022-10-01] MEDS: LOSARTAN 50 MG TAB PO SCH (09:09)
[2022-10-01] MEDS: FUROSEMIDE 10 MG/ML 4 ML VIAL IV SCH (09:09)
[2022-10-01] MEDS: HEPARIN SODIUM,PORCINE/PF 5,000 UNIT/0.5 ML SYRINGE SQ SCH ×2 (09:09→17:03)
--- NOTE | 2022-10-01 13:48 | P.CRDCN ---
History of Present Illness Consult date: 10/01/22 Consult reason: chest pain History of present illness: History of present illness: This is a 57 year old man with no prior cardiac history. He denies any past medical history. He does not have a primary care physician and has not taking any home medications. Patient presented with complaints of shortness of breath and pressure in the lower rib area that is going on for a few weeks. The pain is mostly constant. During the night he is having sweats difficulty breathing which she thinks is a panic attack and isn't unable to sleep and stays awake until he has to go to work again. Patient is active tobacco smoker up to 2 packs per day, regular alcohol use. Patient presented with blood pressure of 170/103. EKG left bundle branch block Chest x-ray: No acute process. COPD CTA of the chest no evidence of pulmonary embolism. Cardiomegaly, pulmonary vascular congestion, trace pleural effusions. CBC unremarkable. D-dimer 1. INR 1. Potassium 4.3, BUN 19, creatinine 0.83. Troponin negative 2. TSH 2.08. Hemoglobin A1c 6.6. AST 136, ALT 136. Home cardiac medications: None Review Of Systems: At the time of my evaluation: Constitutional: No fever, no chills. No weakness, fatigue or lethargy. EENT: No headache. No dizziness. Lungs: Reports shortness of breath, cough, no sputum production. No wheezing. Cardiovascular: Reports chest pain, no lower extremity edema. No palpitations. No paroxysmal nocturnal dyspnea. No orthopnea. No lightheadedness or dizziness. No syncopal episodes. Abdominal: No abdominal pain. No nausea, vomiting. No diarrhea. No constipation. No bloody or tarry stools. Genitourinary: No dysuria.. No urinary retention. Musculoskeletal: No myalgias. No muscle weakness, no frequent falls. No back pain. No neck pain. Integumentary: No wounds. No rash. No unusual bruising. Neurologic: No aphasia. No facial droop. No change in mentation. No head injury. No headache. Physical examination: Gen: This is a obese 57-year-old male. He is resting in bed and appears to be in no acute distress. Patient is able to lay flat. VS: reviewed HEENT: Head is atraumatic, normocephalic. Pupils equal, round. Sclerae is anicteric. NECK: Supple. No JVD. LUNGS: Diminished bilaterally. No wheezes or rhonchi. No intercostal retractions. HEART: Regular rate and rhythm. No murmur. ABDOMEN: Soft No tenderness. EXTREMITIES: No pedal edema. No calf tenderness. NEUROLOGICAL: Patient is awake, alert and oriented x3. Assessment: Chest pain, acute coronary syndrome ruled out Dyspnea secondary to acute heart failure Suspect cardiomyopathy Active tobacco use and dependence Regular alcohol use Plan: Start patient on losartan 50 mg daily Start patient on Lasix 40 mg IV daily, monitor I&O, daily weights, electrolytes and renal function Obtain lipid panel. Obtain 2-D echocardiogram and Doppler study to assess cardiac structure and function Further recommendations to follow based upon clinical course Thank you kindly for this consultation. Nurse practitioner note has been reviewed, I agree with documented findings and plan of care. Patient was seen and examined. Past Medical History Past Medical History: No Reported History, GERD/Reflux Additional Past Medical History / Comment(s): rapid heart beat, past, sciatic nerve pain, chronic lower back pain, occ heartburn. History of Any Multi-Drug Resistant Organisms: None Reported Past Surgical History: Ablation Additional Past Surgical History / Comment(s): ablation 2-3 years ago Past Anesthesia/Blood Transfusion Reactions: No Reported Reaction Additional Past Anesthesia/Blood Transfusion Reaction / Comment(s): clausterphobia Past Psychological History: No Psychological Hx Reported Smoking Status: Current every day smoker Past Alcohol Use History: Occasional Past Drug Use History: None Reported - Past Family History Father Additional Family Medical History / Comment(s): COPD, CHF. Paternal grandfather-myocardial infarction Brother(s) Additional Family Medical History / Comment(s): Multiple heart attacks with stent placement, permanent pacemaker Mother Family Medical History: Cancer Additional Family Medical History / Comment(s): lung cancer,(smoker) Medications and Allergies Home Medications Medication Instructions Recorded Confirmed Type No Known Home Medications 06/27/17 09/30/22 History Allergies Allergy/AdvReac Type Severity Reaction Status Date / Time No Known Allergies Allergy Verified 09/30/22 21:42 Physical Exam Vitals: Vital Signs Temp Pulse Pulse Resp BP BP Pulse Ox 10/01/22 12:00 97.9 F 72 18 132/72 97 10/01/22 08:00 98.2 F 66 18 170/103 94 L 10/01/22 04:00 93 17 177/77 94 L 10/01/22 01:13 65 18 133/69 95 10/01/22 01:02 98.1 F 90 18 169/62 96 09/30/22 22:18 93 18 153/114 95 09/30/22 20:51 98.0 F 91 18 176/107 98 Intake and Output 09/30/22 10/01/22 10/01/22 22:59 06:59 14:59 Intake Total 180 Balance 180 Intake: Oral 180 Other: Weight 99.79 kg 99.79 kg Results 09/30/22 22:18 09/30/22 22:18 Cardiac Enzymes 09/30/22 09/30/22 10/01/22 Range/Units 22:18 22:18 04:04 AST 136 H (17-59) U/L Troponin I 0.020 0.021 (0.000-0.034) ng/mL Coagulation 09/30/22 Range/Units 22:18 PT 10.3 (9.0-12.0) sec APTT 23.6 (22.0-30.0) sec CBC 09/30/22 Range/Units 22:18 WBC 8.4 (3.8-10.6) k/uL RBC 4.63 (4.30-5.90) m/uL Hgb 15.1 (13.0-17.5) gm/dL Hct 46.1 (39.0-53.0) % Plt Count 253 (150-450) k/uL Comprehensive Metabolic Panel 09/30/22 Range/Units 22:18 Sodium 138 (137-145) mmol/L Potassium 4.3 (3.5-5.1) mmol/L Chloride 109 H (98-107) mmol/L Carbon Dioxide 23 (22-30) mmol/L BUN 19 (9-20) mg/dL Creatinine 0.83 (0.66-1.25) mg/dL Glucose 126 H (74-99) mg/dL Calcium 9.0 (8.4-10.2) mg/dL AST 136 H (17-59) U/L ALT 136 H (4-49) U/L Alkaline Phosphatase 74 (38-126) U/L Total Protein 6.4 (6.3-8.2) g/dL Albumin 3.8 (3.5-5.0) g/dL Current Medications Generic Name Dose Route Start Last Admin Trade Name Freq PRN Reason Stop Dose Admin Aspirin 81 mg 10/02/22 09:00 10/01/22 09:09 Aspirin 81 Mg PO 81 mg DAILY LILLIAN Administration Furosemide 40 mg 10/01/22 09:00 10/01/22 09:09 Furosemide 10 Mg/Ml 4 Ml Vial IV 40 mg DAILY LILLIAN Administration Heparin Sodium (Porcine) 5,000 unit 10/01/22 08:00 10/01/22 09:09 Heparin Sodium,Porcine/Pf 5,000 Unit/0.5 Ml Syringe SQ 5,000 unit Q8HR LILLIAN Administration Losartan Potassium 50 mg 10/01/22 09:00 10/01/22 09:09 Losartan 50 Mg Tab PO 50 mg DAILY LILLIAN Administration Nitroglycerin 0.4 mg 10/01/22 00:03 Nitroglycerin Sl Tabs 0.4 Mg Tab SUBLINGUAL Q5M PRN Chest Pain Pantoprazole Sodium 40 mg 10/02/22 09:00 Pantoprazole 40 Mg/10 Ml Vial IVP DAILY LILLIAN Intake and Output 09/30/22 10/01/22 10/01/22 22:59 06:59 14:59 Intake Total 180 Balance 180 Intake: Oral 180 Other: Weight 99.79 kg 99.79 kg 09/30/22 22:18 09/30/22 22:18
--- NOTE | 2022-10-01 14:30 | P.HPIM ---
History of Present Illness H&P Date: 10/01/22 History of present illness; patient is a 57-year-old gentleman with no significant past medical history not on any home medications and to the ER because of feeling of not feeling well for the last few days. Patient stated that for the last few days he has been noticing that he has been having this epigastric pain associated with decreased appetite. Patient also noticed that he was getting short of breath on exertion with reduced exercise tolerance. Patient complaining of decreased sleep, feelings of lethargic throughout the day. Denies any altered bowel movements, complaining of occasional nausea not associated with any vomiting. Denies any swelling of lower extremities. Denies any orthopnea or PND. Because of this constellation of symptoms, patient came to the ER Initial lab work in the ER showed white count 8.4, hemoglobin 15.1, platelet count 253, d-dimer was 1, sodium 138, potassium 4.3, BUN 19, creatinine 0.[address] chest showed no evidence of PE, showed cardiomegaly with pulmonary venous congestion Chest x-ray negative for acute cardiac process. Patient admitted to internal medicine service REVIEW OF SYSTEMS: CONSTITUTIONAL: No fever HEENT: No recent visual problems or hearing problems. Denied any sore throat. CARDIOVASCULAR: As mentioned in HPI PULMONARY: no cough, no hemoptysis. GASTROINTESTINAL: No diarrhea, no nausea, no vomiting, no abdominal pain. NEUROLOGICAL: No headaches, no weakness, no numbness. HEMATOLOGICAL: Denies any bleeding or petechiae. GENITOURINARY: Denies any burning micturition, frequency, or urgency. MUSCULOSKELETAL/RHEUMATOLOGICAL: Denies any joint pain, swelling, or any muscle pain. ENDOCRINE: Denies any polyuria or polydipsia. The rest of the 14-point review of systems is negative. PHYSICAL EXAMINATION: GENERAL: The patient is alert and oriented x3, not in any acute distress. Well developed, well nourished. HEENT: Pupils are round and equally reacting to light. EOMI. No scleral icterus. No conjunctival pallor. Normocephalic, atraumatic. No pharyngeal erythema. No thyromegaly. CARDIOVASCULAR: S1 and S2 present. No murmurs, rubs, or gallops. PULMONARY: Chest is clear to auscultation, no wheezing or crackles. ABDOMEN: Soft, nontender, nondistended, normoactive bowel sounds. No palpable organomegaly. MUSCULOSKELETAL: No joint swelling or deformity. EXTREMITIES: No cyanosis, clubbing, or pedal edema. NEUROLOGICAL: Gross neurological examination did not reveal any focal deficits. SKIN: No rashes. Assessment and plan Chest pain Hypertension GERD Tobacco addiction Elevated LFTs Monitor vital signs Monitor CBC Monitor CMP Strict I's and O's Daily weight Follow-up on 2-D echo Ordered ultrasound of abdomin Continue IV Protonix Continue aspirin, added losartan for blood pressure. Cardiology consulted DVT prophylaxis: Past Medical History Past Medical History: No Reported History, GERD/Reflux Additional Past Medical History / Comment(s): rapid heart beat, past, sciatic nerve pain, chronic lower back pain, occ heartburn. History of Any Multi-Drug Resistant Organisms: None Reported Past Surgical History: Ablation Additional Past Surgical History / Comment(s): ablation 2-3 years ago Past Anesthesia/Blood Transfusion Reactions: No Reported Reaction Additional Past Anesthesia/Blood Transfusion Reaction / Comment(s): clausterphobia Past Psychological History: No Psychological Hx Reported Smoking Status: Current every day smoker Past Alcohol Use History: Occasional Past Drug Use History: None Reported - Past Family History Father Additional Family Medical History / Comment(s): COPD, CHF. Paternal grandfather-myocardial infarction Brother(s) Additional Family Medical History / Comment(s): Multiple heart attacks with stent placement, permanent pacemaker Mother Family Medical History: Cancer Additional Family Medical History / Comment(s): lung cancer,(smoker) Medications and Allergies Home Medications Medication Instructions Recorded Confirmed Type No Known Home Medications 06/27/17 09/30/22 History Allergies Allergy/AdvReac Type Severity Reaction Status Date / Time No Known Allergies Allergy Verified 09/30/22 21:42 Physical Exam Vitals: Vital Signs Temp Pulse Pulse Resp BP BP Pulse Ox 10/01/22 08:00 98.2 F 66 18 170/103 94 L 10/01/22 04:00 93 17 177/77 94 L 10/01/22 01:13 65 18 133/69 95 10/01/22 01:02 98.1 F 90 18 169/62 96 09/30/22 22:18 93 18 153/114 95 09/30/22 20:51 98.0 F 91 18 176/107 98 Intake and Output 09/30/22 10/01/22 10/01/22 22:59 06:59 14:59 Intake Total 180 Balance 180 Intake: Oral 180 Other: Weight 99.79 kg 99.79 kg Results CBC & Chem 7: 09/30/22 22:18 09/30/22 22:18 Labs: Abnormal Lab Results - Last 24 Hours (Table) 09/30/22 09/30/22 Range/Units 22:18 22:18 D-Dimer 1.00 H (<0.60) mg/L FEU Chloride 109 H (98-107) mmol/L Glucose 126 H (74-99) mg/dL AST 136 H (17-59) U/L ALT 136 H (4-49) U/L Thrombosis Risk Factor Assmnt - Choose All That Apply Each Factor Represents 1 point: Age 41-60 years Other Risk Factors: No Thrombosis Risk Factor Assessment Total Risk Factor Score: 1 Thrombosis Risk Factor Assessment Level: Low Risk
[2022-10-02] MEDS: HEPARIN SODIUM,PORCINE/PF 5,000 UNIT/0.5 ML SYRINGE SQ SCH ×3 (00:29→15:29)
[2022-10-02 08:16] LABS: Basophils % (A) 0 %; Eosinophils # (A) 0.2 k/uL (0-0.7); Eosinophils % (A) 3 %; HCT 50.8 % (39.0-53.0); HGB 16.5 gm/dL (13.0-17.5); Lymphocytes # (A) 1.6 k/uL (1.0-4.8); Lymphocytes % (A) 26 %; MCHC 32.4 g/dL (31.0-37.0); MCV 101.8 fL (80.0-100.0); Macrocytosis Slight; Mean Platelet Volume 7.8; Monocytes # (A) 0.3 k/uL (0-1.0); Monocytes % (A) 5 %; Neutrophils # (A) 3.8 k/uL (1.3-7.7); Neutrophils % (A) 63 %; Platelet Count 260 k/uL (150-450); RBC 4.99 m/uL (4.30-5.90); WBC 6.1 k/uL (3.8-10.6)
[2022-10-02 08:26] LABS: ALT 91 U/L (4-49); AST 47 U/L (17-59); African American GFR (CKD) >90 (>60 ml/min/1.73 sqM); Albumin 3.8 g/dL (3.5-5.0); Alkaline Phosphatase 74 U/L (38-126); Anion Gap 8 mmol/L; Blood Urea Nitrogen 19 mg/dL (9-20); Carbon Dioxide 26 mmol/L (22-30); Chloride 105 mmol/L (98-107); Glucose 192 mg/dL (74-99); Non-African American GFR(CKD) >90 (>60 ml/min/1.73 sqM); Potassium 4.5 mmol/L (3.5-5.1); Sodium 139 mmol/L (137-145); Total Bilirubin 0.8 mg/dL (0.2-1.3); Total Protein 6.5 g/dL (6.3-8.2)
--- NOTE | 2022-10-02 08:31 | US ---
EXAMINATION TYPE: US abdomen complete DATE OF EXAM: 10/02/2022 COMPARISON: CT Chest CLINICAL INDICATION: Male, 57 years old with history of Abdominal pain, elevated LFTs; Elevated LFT's , pt states chest and epigastric pain TECHNIQUE: Multiple sonographic images of the abdomen are obtained. FINDINGS: EXAM MEASUREMENTS: Liver Length: 18.8 cm Gallbladder Wall: 0.3 cm CBD: 0.9 cm Spleen: 9.2 cm Right Kidney: 13.9 x 6.0 x 6.5 cm Left Kidney: Unable to visualize PROVIDER RELATIONS MANAGER NOTES: Pancreas: 4mm panc duct, tail obscured by overlying bowel gas Liver: Enlarged, otherwise no abnormality appreciated Gallbladder: wall thickness upper limits of normal, otherwise appeared wnl Evidence for sonographic Mendosa's sign: No CBD: Dilated Spleen: wnl Right Kidney: Large in size Left Kidney: Unable to visualize within left renal fossa or left pelvis- ?congenitally absent- pt st ates no history of surgery Upper IVC: wnl Abd Aorta: distal portion obscured by overlying bowel gas . IMPRESSION: 1. Hepatomegaly with coarsened echo pattern correlate with liver function studies to assess for hepat ocellular disease or hepatic steatosis. 2. There is prominent pancreatic duct and dilated CBD measuring 9 mm. Distal CBD pathology including calcification or mucosal lesion. Recommend CT of the abdomen to assess the pancreatic head and periam pullary region.
[2022-10-02] MEDS: LOSARTAN 50 MG TAB PO SCH (08:44)
[2022-10-02] MEDS: ASPIRIN 81 MG PO SCH (08:44)
[2022-10-02] MEDS: PANTOPRAZOLE 40 MG/10 ML VIAL IVP SCH (08:45)
[2022-10-02] MEDS: FUROSEMIDE 10 MG/ML 4 ML VIAL IV SCH (08:45)
[2022-10-02] MEDS ORDERED: ASPIRIN 325 MG TAB PO SCH (09:00)
[2022-10-02] MEDS ORDERED: DEXTROSE 50% SYRINGE 50 ML IVP PRN ×2 (10:18)
[2022-10-02] MEDS: carvediloL 3.125 MG TAB PO SCH ×2 (10:19→16:38)
[2022-10-02] MEDS ORDERED: ALPRAZolam 0.5 MG TAB PO STA (10:38)
[2022-10-02 11:49] LABS: Glucose,Whole Blood 119 mg/dL (70-110)
[2022-10-02] MEDS: INSULIN ASPART (NovoLOG) 100 UNIT/ML VIAL SQ SCH ×3 (11:50→20:33)
--- NOTE | 2022-10-02 11:54 | CT ---
EXAMINATION TYPE: CT abdomen pelvis w con CT DLP: 1468.1 mGycm, Automated exposure control for dose reduction was used. DATE OF EXAM: 10/02/2022 11:24 AM COMPARISON: None. CLINICAL INDICATION:Male, 57 years old with history of Elevated LFTs, pancreatic pathology; abnormal LFT TECHNIQUE: Axial CT of the abdomen and pelvis. Sagittal and coronal reformats were created on a [employer] workstation. Contrast used:100 mL of Isovue 300 with IV Contrast, (none if empty) Oral contrast used: without Oral Contrast (none if empty) FINDINGS: LOWER CHEST: Trace right pleural effusion. ABDOMEN LIVER: No ductal dilation or mass. GALLBLADDER AND BILE DUCTS: Unremarkable. PANCREAS: No evidence for mass or ductal dilation. SPLEEN: Unremarkable. ADRENAL GLANDS: Flattened appearance of left renal gland. Right adrenal gland unremarkable. KIDNEYS AND URETERS: No evidence of hydronephrosis or renal calculus. The ureters are unremarkable. PELVIS BLADDER: Unremarkable REPRODUCTIVE: Prostate is enlarged in size measuring 5.2 cm in transverse dimension. ABDOMEN & PELVIS STOMACH AND BOWEL: No evidence of bowel obstruction. The appendix is normal. PERITONEUM/RETROPERITONEUM: No evidence of pneumoperitoneum or free fluid. VASCULATURE: Mild atherosclerotic calcifications are present throughout the abdominal aorta and its b ranches. No evidence of aortic aneurysm. MUSCULOSKELETAL: No acute osseous abnormalities. Mild disc degeneration changes are present throughou t the thoracolumbar spine. LYMPH NODES: No gross evidence for lymphadenopathy. SOFT TISSUE/ABDOMINAL WALL: Bilateral fat filled inguinal hernia. Small fat-containing umbilical bran ia. IMPRESSION: 1. The liver is within normal limits for attenuation. No evidence for dilated ducts or mass. 2. The pancreas is within normal limits without evidence for mass or ductal dilation. 3. Trace right pleural effusion. 4. The left kidney is not visualized and may be congenitally absent given findings flat appearance o f left adrenal gland.
--- NOTE | 2022-10-02 12:19 | CA ---
Transthoracic Echo Report Name: Ivan Larkin Age: 57 Gender: M : 1965 Exam Date: 10/01/2022 14:13 Exam Location: [facility] Ht (in): 70 Wt (lb): 220 Ordering Physician: Safia Fernandez Attending/Referring Phys: [id number], Jim [employer] Driver Fatuma Chavis [facility] Procedure CPT: Indications: LVF Cardiac Hx: Technical Quality: Technically difficult study Contrast 1: Lumason Total Dose (mL): 5 Contrast 2: Total Dose (mL): MEASUREMENTS (Male / Female) Normal Values 2D ECHO LV Diastolic Diameter PLAX 5.4 cm 4.2 - 5.9 / 3.9 - 5.3 cm LV Systolic Diameter PLAX 4.7 cm IVS Diastolic Thickness 1.0 cm 0.6 - 1.0 / 0.6 - 0.9 cm LVPW Diastolic Thickness 1.3 cm 0.6 - 1.0 / 0.6 - 0.9 cm LV Relative Wall Thickness 0.4 LVOT Diameter 2.1 cm M-MODE Aortic Root Diameter MM 3.4 cm LA Systolic Diameter MM 4.5 cm LA Ao Ratio MM 1.3 AV Cusp Separation MM 2.2 cm DOPPLER AV Peak Velocity 117.1 cm/s AV Peak Gradient 5.5 mmHg AV Mean Velocity 90.8 cm/s AV Mean Gradient 3.5 mmHg AV Velocity Time Integral 21.1 cm LVOT Peak Velocity 106.8 cm/s LVOT Peak Gradient 4.6 mmHg LVOT Velocity Time Integral 19.6 cm LVOT Stroke Volume 69.8 cm??? LVOT Stroke Volume Index 32.1 ml/m??? LVOT Cardiac Index 2327.4 cm???/min???m??? AV Area Cont Eq vti 3.3 cm??? AV Area Cont Eq pk 3.3 cm??? Mitral E Point Velocity 70.4 cm/s Mitral A Point Velocity 38.1 cm/s Mitral E to A Ratio 1.8 MV Deceleration Time 168.6 ms LV E' Lateral Velocity 6.8 cm/s Mitral E to LV E' Lateral Ratio 10.3 LV E' Septal Velocity 5.2 cm/s Mitral E to LV E' Septal Ratio 13.7 TR Peak Velocity 233.8 cm/s TR Peak Gradient 21.9 mmHg Right Atrial Pressure 3.0 mmHg Pulmonary Artery Systolic Pressu 24.9 mmHg Right Ventricular Systolic Press 24.9 mmHg FINDINGS Left Ventricle Mild left ventricular dilatation. The ejection fraction is visually estimated at 35-40%. Moderately reduced global left ventricular systolic function. Right Ventricle Mild right ventricular dilatation. Right Atrium The right atrium is normal in size. Left Atrium Severe left atrial dilatation. Mitral Valve Structurally normal mitral valve without significant stenosis or prolapse. There is no mitral regurgitation. Aortic Valve Structurally normal aortic valve without significant sclerosis or stenosis. There is no aortic regurgitation. Tricuspid Valve Structurally normal tricuspid valve. Trace tricuspid regurgitation. Pulmonic Valve Structurally normal pulmonic valve without significant stenosis. Trace pulmonic regurgitation. Pericardium Normal pericardium without effusion. Aorta Normal aortic root dimension. CONCLUSIONS Left ventricular ejection fraction 35-40% Mild right ventricular dilation No mitral regurgitation Trace tricuspid regurgitation Previewed by: Dr. Pete Franco DO (Electronically Signed) Final Date: 02 October 2022 12:18
--- NOTE | 2022-10-02 13:20 | P.PN ---
Subjective Progress Note Date: 10/02/22 patient is a 57-year-old gentleman with no significant past medical history not on any home medications and to the ER because of feeling of not feeling well for the last few days. Patient stated that for the last few days he has been noticing that he has been having this epigastric pain associated with decreased appetite. Patient also noticed that he was getting short of breath on exertion with reduced exercise tolerance. Patient complaining of decreased sleep, feelings of lethargic throughout the day. Denies any altered bowel movements, complaining of occasional nausea not associated with any vomiting. Denies any swelling of lower extremities. Denies any orthopnea or PND. Because of this c onstellation of symptoms, patient came to the ER Initial lab work in the ER showed white count 8.4, hemoglobin 15.1, platelet count 253, d-dimer was 1, sodium 138, potassium 4.3, BUN 19, creatinine 0.[address] chest showed no evidence of PE, showed cardiomegaly with pulmonary venous congestion Chest x-ray negative for acute cardiac process. Patient admitted to internal medicine service 10/02. Patient seen and examined. Denies any chest pain. Denies any shortness of breath. Denies any abdominal pain REVIEW OF SYSTEMS: CONSTITUTIONAL: No fever, no malaise,. CARDIOVASCULAR: No chest pain, no palpitations, no syncope. PULMONARY: No shortness of breath, no cough, GASTROINTESTINAL: No diarrhea, no nausea, no vomiting, no abdominal pain. NEUROLOGICAL: No headaches, no weakness, PHYSICAL EXAMINATION: GENERAL: The patient is alert and oriented x3, not in any acute distress. Well developed, well nourished. HEENT: Pupils are round and equally reacting to light. EOMI. No scleral icterus. No conjunctival pallor. Normocephalic, atraumatic. No pharyngeal erythema. No thyromegaly. CARDIOVASCULAR: S1 and S2 present. No murmurs, rubs, or gallops. PULMONARY: Chest is clear to auscultation, no wheezing or crackles. ABDOMEN: Soft, nontender, nondistended, normoactive bowel sounds. No palpable organomegaly. MUSCULOSKELETAL: No joint swelling or deformity. EXTREMITIES: No cyanosis, clubbing, or pedal edema. NEUROLOGICAL: Gross neurological examination did not reveal any focal deficits. SKIN: No rashes. Assessment and plan Chest pain Hypertension GERD Tobacco addiction Elevated LFTs New diagnosis diabetes mellitus Plan Monitor vital signs Monitor CBC Monitor CMP Continue telemetry monitoring Ultrasound abdomen done showed hepatomegaly with coarse echo could be secondary to hepatocellular disease or hepatic steatosis. Prominent pancreatic duct and dilated common bile duct, distal CBD pathology including calcification or mucosal lesion. CT abdominal and recommended Monitor LFTs Follow-up on 2-D echo HbA1c level of 6.6, will start patient on oral hypoglycemics Order CT abdominal pelvis Follow-up on cardiology Objective - Vital Signs Vital signs: Vital Signs Temp 98.4 F 10/02/22 08:00 Pulse 71 10/02/22 08:00 Resp 20 10/02/22 08:00 BP 130/70 10/02/22 08:00 Pulse Ox 95 10/02/22 08:00 FiO2 Intake & Output 10/01/22 10/02/22 10/02/22 18:59 06:59 18:59 Intake Total 180 118 Balance 180 118 Weight 97.8 kg Intake: Oral 180 118 Other: Voiding Method Toilet Toilet # Voids 2 - Labs CBC & Chem 7: 10/02/22 08:01 10/02/22 08:01 Labs: Abnormal Lab Results - Last 24 Hours (Table) 10/01/22 10/02/22 10/02/22 Range/Units 08:15 08:01 08:01 MCV 101.8 H (80.0-100.0) fL Glucose 192 H (74-99) mg/dL Hemoglobin A1c 6.6 H (<=6.0) % ALT 91 H (4-49) U/L
--- NOTE | 2022-10-02 14:30 | P.PN ---
Subjective Progress Note Date: 10/02/22 History of present illness: This is a 57 year old man with no prior cardiac history. He denies any past m edical history. He does not have a primary care physician and has not taking any home medications. Patient presented with complaints of shortness of breath and pressure in the lower rib area that is going on for a few weeks. The pain is mostly constant. During the night he is having sweats difficulty breathing which she thinks is a panic attack and isn't unable to sleep and stays awake until he has to go to work again. Patient is active tobacco smoker up to 2 packs per day, regular alcohol use. Patient presented with blood pressure of 170/103. EKG left bundle branch block Chest x-ray: No acute process. COPD CTA of the chest no evidence of pulmonary embolism. Cardiomegaly, pulmonary vascular congestion, trace pleural effusions. CBC unremarkable. D-dimer 1. INR 1. Potassium 4.3, BUN 19, creatinine 0.83. Troponin negative 2. TSH 2.08. Hemoglobin A1c 6.6. AST 136, ALT 136. Home cardiac medications: None 10/02 Patient is seen today in follow-up. He is currently on IV Lasix 40 mg daily. He states that shortness of breath is improved. He is able to lay flat in bed. His echocardiogram reveals EF of 35-40%. Mild right ventricular dilation. No mitral regurgitation. Trace tricuspid regurgitation. Results reviewed with the patient. Discussed need for absolute alcohol and smoking cessation. Plan to monitor patient on another 24-48 hours. Patient may still undergo cardiac catheterization during this hospitalization. Physical examination: Gen: This is a obese 57-year-old male. He is resting in bed and appears to be in no acute distress. Patient is able to lay flat. VS: reviewed HEENT: Head is atraumatic, normocephalic. Pupils equal, round. Sclerae is anicteric. NECK: Supple. No JVD. LUNGS: Diminished bilaterally. No wheezes or rhonchi. No intercostal retractions. HEART: Regular rate and rhythm. No murmur. ABDOMEN: Soft No tenderness. EXTREMITIES: No pedal edema. No calf tenderness. NEUROLOGICAL: Patient is awake, alert and oriented x3. Assessment: Chest pain, acute coronary syndrome ruled out Dyspnea secondary to acute heart failure Suspect cardiomyopathy Active tobacco use and dependence Regular alcohol use New diagnosis of diabetes. Attending to addressed Plan: Continue patient on losartan 50 mg daily Transition IV Lasix to oral 40 mg daily monitor I&O, daily weights, electrolytes and renal function Add aspirin 81 mg daily, Coreg 3.125 mg twice daily Further recommendations to follow based upon clinical course Thank you kindly for this consultation. Nurse practitioner note has been reviewed, I agree with documented findings and plan of care. Patient was seen and examined. Objective - Vital Signs Vital signs: Vital Signs Temp 98.4 F 10/02/22 08:00 Pulse 71 10/02/22 08:00 Resp 20 10/02/22 08:00 BP 130/70 10/02/22 08:00 Pulse Ox 95 10/02/22 08:00 FiO2 Intake & Output 10/01/22 10/02/22 10/02/22 18:59 06:59 18:59 Intake Total 180 118 Balance 180 118 Weight 97.8 kg Intake: Oral 180 118 Other: Voiding Method Toilet Toilet # Voids 2 - Labs CBC & Chem 7: 10/02/22 08:01 10/02/22 08:01 Labs: Abnormal Lab Results - Last 24 Hours (Table) 10/01/22 10/02/22 10/02/22 Range/Units 08:15 08:01 08:01 MCV 101.8 H (80.0-100.0) fL Glucose 192 H (74-99) mg/dL Hemoglobin A1c 6.6 H (<=6.0) % ALT 91 H (4-49) U/L
[2022-10-02 16:36] LABS: Glucose,Whole Blood 153 mg/dL (70-110)
[2022-10-02 20:32] LABS: Glucose,Whole Blood 100 mg/dL (70-110)
[2022-10-03 05:21] LABS: Chol/HDL Ratio 3.37 Ratio; LDL Cholesterol,Calculated 95.2 mg/dL (0.0-131.0)
[2022-10-03 06:19] LABS: Glucose,Whole Blood 134 mg/dL (70-110)
[2022-10-03] MEDS: INSULIN ASPART (NovoLOG) 100 UNIT/ML VIAL SQ SCH ×4 (06:19→20:52)
[2022-10-03] MEDS: carvediloL 3.125 MG TAB PO SCH ×2 (06:25→16:30)
[2022-10-03] MEDS: GLIMEPIRIDE 1 MG TAB PO SCH (06:25)
[2022-10-03] MEDS: HEPARIN SODIUM,PORCINE/PF 5,000 UNIT/0.5 ML SYRINGE SQ SCH ×3 (07:08→15:27)
[2022-10-03] MEDS: PANTOPRAZOLE 40 MG/10 ML VIAL IVP SCH (08:40)
[2022-10-03] MEDS: FUROSEMIDE 40 MG TAB PO SCH (08:40)
[2022-10-03] MEDS: LOSARTAN 50 MG TAB PO SCH (08:40)
[2022-10-03] MEDS: ASPIRIN 81 MG PO SCH (08:40)
[2022-10-03 09:02] LABS: African American GFR (CKD) >90 (>60 ml/min/1.73 sqM); Anion Gap 10 mmol/L; Blood Urea Nitrogen 20 mg/dL (9-20); Carbon Dioxide 25 mmol/L (22-30); Chloride 101 mmol/L (98-107); Glucose 254 mg/dL (74-99); Magnesium 1.9 mg/dL (1.6-2.3); Non-African American GFR(CKD) 80 (>60 ml/min/1.73 sqM); Potassium 4.6 mmol/L (3.5-5.1); Sodium 136 mmol/L (137-145)
[2022-10-03] MEDS ORDERED: ASPIRIN 325 MG TAB PO STA (09:31)
[2022-10-03] MEDS ORDERED: ALPRAZolam 0.5 MG TAB PO PRN (09:31)
[2022-10-03] MEDS ORDERED: ALPRAZolam 0.25 MG TAB PO PRN (09:31)
[2022-10-03] MEDS ORDERED: ATORVASTATIN 80 MG TAB PO STA (09:31)
[2022-10-03] MEDS ORDERED: NITROGLYCERIN SL TABS 0.4 MG TAB SUBLINGUAL PRN (09:31)
[2022-10-03] MEDS: SPIRONOLACTONE 25 MG TAB PO SCH (10:45)
--- NOTE | 2022-10-03 10:55 | P.PN ---
Subjective Progress Note Date: 10/03/22 History of present illness: This is a 57 year old man with no prior cardiac history. He denies any past m edical history. He does not have a primary care physician and has not taking any home medications. Patient presented with complaints of shortness of breath and pressure in the lower rib area that is going on for a few weeks. The pain is mostly constant. During the night he is having sweats difficulty breathing which she thinks is a panic attack and isn't unable to sleep and stays awake until he has to go to work again. Patient is active tobacco smoker up to 2 packs per day, regular alcohol use. Patient presented with blood pressure of 170/103. EKG left bundle branch block Chest x-ray: No acute process. COPD CTA of the chest no evidence of pulmonary embolism. Cardiomegaly, pulmonary vascular congestion, trace pleural effusions. CBC unremarkable. D-dimer 1. INR 1. Potassium 4.3, BUN 19, creatinine 0.83. Troponin negative 2. TSH 2.08. Hemoglobin A1c 6.6. AST 136, ALT 136. Home cardiac medications: None 10/02 Patient is seen today in follow-up. He is currently on IV Lasix 40 mg daily. He states that shortness of breath is improved. He is able to lay flat in bed. His echocardiogram reveals EF of 35-40%. Mild right ventricular dilation. No mitral regurgitation. Trace tricuspid regurgitation. Results reviewed with the patient. Discussed need for absolute alcohol and smoking cessation. Plan to monitor patient on another 24-48 hours. Patient may still undergo cardiac catheterization during this hospitalization. 10/03 The patient states that he is feeling much better. No chest pain or shortness of breath. He has been able to ambulate with no lightheadedness or dizziness. Heart rate is in the 50s, blood pressure 118/79, telemetry is sinus rhythm. Echocardiogram reveals EF of 35-40% with mild right ventricular dilation. No MR. Trace TR. He underwent CAT scan of the abdomen and pelvis which did not reveal any acute findings. Abdominal ultrasound reveals hepatomegaly with hepatocellular disease or hepatic steatosis. Prominent pancreatic duct and dilated CBD. Patient verbalizes that he is concerned about seen in hospital due to [id number] cost to him. Physical examination: Gen: This is a obese 57-year-old male. He is resting in bed and appears to be in no acute distress. Patient is able to lay flat. VS: reviewed HEENT: Head is atraumatic, normocephalic. Pupils equal, round. Sclerae is anicteric. NECK: Supple. No JVD. LUNGS: Diminished bilaterally. No wheezes or rhonchi. No intercostal retractions. HEART: Regular rate and rhythm. No murmur. ABDOMEN: Soft No tenderness. EXTREMITIES: No pedal edema. No calf tenderness. NEUROLOGICAL: Patient is awake, alert and oriented x3. Assessment: Chest pain, acute coronary syndrome ruled out Dyspnea secondary to acute heart failure Cardiomyopathy unclear etiology Active tobacco use and dependence Regular alcohol use New diagnosis of diabetes. Attending to addressed Plan: Continue patient on losartan 50 mg daily, aspirin 81 mg daily, Coreg 3.125 mg twice daily, Lasix 40 mg daily Add Aldactone 25 mg daily Patient will be scheduled for cardiac catheterization with Dr. LANDY Baig tomorrow. Further recommendations to follow based upon clinical course Nurse practitioner note has been reviewed, I agree with documented findings and plan of care. Patient was seen and examined. Objective - Vital Signs Vital signs: Vital Signs Temp 97.7 F 10/03/22 08:00 Pulse 68 10/03/22 08:00 Resp 18 10/03/22 08:00 BP 110/72 10/03/22 08:00 Pulse Ox 96 10/03/22 08:00 FiO2 Intake & Output 10/02/22 10/03/22 10/03/22 18:59 06:59 18:59 Intake Total 778 810 240 Output Total 1000 Balance -222 810 240 Intake: Oral 778 810 240 Output: Urine 1000 Other: Voiding Method Toilet Toilet Toilet # Voids 2 2 1 - Labs CBC & Chem 7: 10/02/22 08:01 10/03/22 07:56 Labs: Abnormal Lab Results - Last 24 Hours (Table) 10/02/22 10/02/22 10/02/22 Range/Units 08:01 11:46 16:34 Sodium (137-145) mmol/L Glucose (74-99) mg/dL POC Glucose (mg/dL) 119 H 153 H (70-110) mg/dL Triglycerides 206.00 H (0.00-149.00) mg/dL VLDL Cholesterol, Calc 41.20 H (5.00-40.00) mg/dL 10/03/22 10/03/22 Range/Units 05:46 07:56 Sodium 136 L (137-145) mmol/L Glucose 254 H (74-99) mg/dL POC Glucose (mg/dL) 134 H (70-110) mg/dL Triglycerides (0.00-149.00) mg/dL VLDL Cholesterol, Calc (5.00-40.00) mg/dL
[2022-10-03 12:04] LABS: Glucose,Whole Blood 81 mg/dL (70-110)
--- NOTE | 2022-10-03 13:20 | P.PN ---
Subjective Progress Note Date: 10/03/22 patient is a 57-year-old gentleman with no significant past medical history not on any home medications and to the ER because of feeling of not feeling well for the last few days. Patient stated that for the last few days he has been noticing that he has been having this epigastric pain associated with decreased appetite. Patient also noticed that he was getting short of breath on exertion with reduced exercise tolerance. Patient complaining of decreased sleep, feelings of lethargic throughout the day. Denies any altered bowel movements, complaining of occasional nausea not associated with any vomiting. Denies any swelling of lower extremities. Denies any orthopnea or PND. Because of this c onstellation of symptoms, patient came to the ER Initial lab work in the ER showed white count 8.4, hemoglobin 15.1, platelet count 253, d-dimer was 1, sodium 138, potassium 4.3, BUN 19, creatinine 0.[address] chest showed no evidence of PE, showed cardiomegaly with pulmonary venous congestion Chest x-ray negative for acute cardiac process. Patient admitted to internal medicine service 10/02. Patient seen and examined. Denies any chest pain. Denies any shortness of breath. Denies any abdominal pain 10/03. Patient seen and examined. Denies any chest pain. Laying comfortably in the bed he had sodium this morning is 136, BUN 20, creatinine 1.05 REVIEW OF SYSTEMS: CONSTITUTIONAL: No fever, no malaise,. CARDIOVASCULAR: No chest pain, no palpitations, no syncope. PULMONARY: No shortness of breath, no cough, GASTROINTESTINAL: No diarrhea, no nausea, no vomiting, no abdominal pain. NEUROLOGICAL: No headaches, no weakness, PHYSICAL EXAMINATION: GENERAL: The patient is alert and oriented x3, not in any acute distress. Well developed, well nourished. HEENT: Pupils are round and equally reacting to light. EOMI. No scleral icterus. No conjunctival pallor. Normocephalic, atraumatic. No pharyngeal erythema. No thyromegaly. CARDIOVASCULAR: S1 and S2 present. No murmurs, rubs, or gallops. PULMONARY: Chest is clear to auscultation, no wheezing or crackles. ABDOMEN: Soft, nontender, nondistended, normoactive bowel sounds. No palpable organomegaly. MUSCULOSKELETAL: No joint swelling or deformity. EXTREMITIES: No cyanosis, clubbing, or pedal edema. NEUROLOGICAL: Gross neurological examination did not reveal any focal deficits. SKIN: No rashes. Assessment and plan Chest pain Hypertension GERD Tobacco addiction Elevated LFTs New diagnosis diabetes mellitus Plan Monitor vital signs Monitor CBC Monitor CMP Continue telemetry monitoring Ultrasound abdomen done showed hepatomegaly with coarse echo could be secondary to hepatocellular disease or hepatic steatosis. Prominent pancreatic duct and dilated common bile duct, distal CBD pathology including calcification or mucosal lesion. CT abdominal and recommended CT abdominal pelvis showed liver within normal limits, no evidence of bile duct or mass, pancreas also normal. 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 Monitor LFTs 2-D echo showed LVEF of 35-40%, mild right ventricle dilatation, no mitral regurg HbA1c level of 6.6, started patient on sliding scale insulin and glimepiride Continue patient on losartan 50 mg daily, aspirin 81 mg daily, Coreg 3.125 mg twice daily, Lasix 40 mg daily, Aldactone 25 mg daily Continue Aldactone 25 mg daily Follow-up on cardiology, planning to do cardiac cath in the morning Objective - Vital Signs Vital signs: Vital Signs Temp 97.7 F 10/03/22 08:00 Pulse 68 10/03/22 08:00 Resp 18 10/03/22 08:00 BP 110/72 10/03/22 08:00 Pulse Ox 96 10/03/22 08:00 FiO2 Intake & Output 10/02/22 10/03/22 10/03/22 18:59 06:59 18:59 Intake Total 778 810 240 Output Total 1000 Balance -222 810 240 Intake: Oral 778 810 240 Output: Urine 1000 Other: Voiding Method Toilet Toilet Toilet # Voids 2 2 1 - Labs CBC & Chem 7: 10/02/22 08:01 10/03/22 07:56 Labs: Abnormal Lab Results - Last 24 Hours (Table) 10/02/22 10/02/22 10/02/22 Range/Units 08:01 11:46 16:34 Sodium (137-145) mmol/L Glucose (74-99) mg/dL POC Glucose (mg/dL) 119 H 153 H (70-110) mg/dL Triglycerides 206.00 H (0.00-149.00) mg/dL VLDL Cholesterol, Calc 41.20 H (5.00-40.00) mg/dL 06/21/23 06/21/23 Range/Units 05:46 07:56 Sodium 136 L (137-145) mmol/L Glucose 254 H (74-99) mg/dL POC Glucose (mg/dL) 134 H (70-110) mg/dL Triglycerides (0.00-149.00) mg/dL VLDL Cholesterol, Calc (5.00-40.00) mg/dL
[2022-10-03 16:25] LABS: Glucose,Whole Blood 112 mg/dL (70-110)
[2022-10-03 20:32] LABS: Glucose,Whole Blood 212 mg/dL (70-110)
[2022-10-04] MEDS: HEPARIN SODIUM,PORCINE/PF 5,000 UNIT/0.5 ML SYRINGE SQ SCH ×2 (00:47→10:17)
[2022-10-04 06:03] LABS: Glucose,Whole Blood 133 mg/dL (70-110)
[2022-10-04] MEDS ORDERED: ATORVASTATIN 80 MG TAB PO STA (06:36)
[2022-10-04] MEDS ORDERED: ASPIRIN 325 MG TAB PO STA (06:37)
[2022-10-04] MEDS: INSULIN ASPART (NovoLOG) 100 UNIT/ML VIAL SQ SCH ×2 (06:38→14:00)
[2022-10-04] MEDS: GLIMEPIRIDE 1 MG TAB PO SCH (06:38)
[2022-10-04] MEDS: carvediloL 3.125 MG TAB PO SCH (06:43)
[2022-10-04] MEDS ORDERED: HEPARIN SODIUM,PORCINE 2,500 UNIT in SODIUM CHLORIDE 0.9% 250 ML IRRIGATION PRN (07:00)
[2022-10-04] MEDS ORDERED: HEPARIN SODIUM,PORCINE 10,000 UNIT in SODIUM CHLORIDE 0.9% 1,000 ML IRRIGATION PRN (07:00)
[2022-10-04] MEDS ORDERED: SODIUM CHLORIDE 0.9% 500 ML 500 ML IV ONE (07:15)
[2022-10-04] MEDS ORDERED: MIDAZOLAM 2 MG/2 ML VIAL IV ONE (07:28)
[2022-10-04] MEDS ORDERED: fentaNYL (PF) 50 MCG/ML 2 ML AMP ONE (07:30)
[2022-10-04] MEDS ORDERED: LIDOCAINE 1% INJ 10MG/ML (20 ML MDV) SQ ONE (07:30)
[2022-10-04] MEDS ORDERED: fentaNYL (PF) 50 MCG/ML 2 ML AMP IV ONE (07:31)
[2022-10-04] MEDS ORDERED: IOPAMIDOL-370 100ML BTL INJ ONE (07:45)
[2022-10-04] MEDS ORDERED: RX INFO: IV CONTRAST WAS GIVEN 1 EACH MISC MISCELLANE PRN (07:55)
[2022-10-04] MEDS ORDERED: SODIUM CHLORIDE 0.9% 1,000 ML IV SCH (08:00)
--- NOTE | 2022-10-04 09:01 | CC ---
CARDIAC CATHETERIZATION REPORT INDICATIONS: This is a 57-year-old gentleman, who has been admitted to the hospital with episodes of what seems to be mostly shortness of breath and some discomfort in the lower rib area. He does drink alcohol generously and smokes up to 2 packs a day, but he stopped smoking about a day or so before he came into the hospital. His echocardiogram revealed ejection fraction of about 30% to 35% with a global decrease in contractility. Given his cardiomyopathy type picture and mild elevation of troponins, he was advised cardiac cath to rule out obstructive CAD as a cause of cardiomyopathy. PROCEDURE NOTE: The patient's radial pulses were inadequate. Under strict aseptic precautions and local anesthesia, a 6-Zambian introducer was placed in the right femoral artery. Using standard Jaskaran catheters, I performed coronary angiography and used the Saldana catheter to check LV pressure, but LV-gram was not performed. Proximal RCA had a 40% lesion. I gave nitroglycerin intracoronary and there was an improvement in the lesion. There is no significant obstructive CAD. Following the procedure, sheath was taken out and manual compression used to secure hemostasis. Results were discussed with the patient. There was no family available and the patient did not wish that I speak to any family members. I discussed the results on the findings with Dr. Preston. The patient has noncritical CAD with a 40% proximal RCA stenosis, but no significant disease in the left system. Normal filling pressures. No gradient. He will be placed on medical therapy aggressively with lipid-lowering strategies. The patient also has a recently diagnosed diabetes mellitus as well. Moderate Conscious sedation time :24 min The patient tolerated the procedure well without complications. CARDIAC CATHETERIZATION FINDINGS: The left ventricular end-diastolic pressure was 12 mmHg without any gradient across the aortic valve. CORONARY ANGIOGRAPHY FINDINGS: RIGHT CORONARY ARTERY: This is a dominant vessel that extends along the anterior wall. The ostium has somewhat of a downward takeoff. The proximal 2 to 3 cm has about a 40% narrowing. There was some haziness; I gave nitroglycerin, there was improvement. The lesion is no more than 40% in the caliber that improves, and distally, it bifurcates into PDA and PLV. RCA is a dominant vessel. No other significant disease. LEFT MAIN CORONARY ARTERY: This is a short patent vessel, trifurcates into LAD, circumflex, and a small ramus. Left main itself is free of significant disease. LEFT ANTERIOR DESCENDING CORONARY ARTERY: This is a good caliber vessel. It extends along the anterior wall, gives off a large septal branches, then, several septal branches, runs all the way to the apex, curves over the apex to supply the inferoapical portion of left ventricle. LAD is large in caliber and distribution with minor irregularities. No significant disease. RAMUS INTERMEDIUS: This is a small caliber vessel. Supplies a limited amount of myocardium. No significant disease. LEFT POSTERIOR CIRCUMFLEX CORONARY ARTERY: Technically nondominant vessel, large in caliber. Distally trifurcates into 3 branches, 2 of them run as a posterolateral branch and obtuse marginal branch and the third one runs into the AV groove. Minor irregularities. No significant disease. Nondominant vessel. Left ventriculogram was not performed. FINAL IMPRESSION: This patient has a right-dominant system. Normal filling pressures and no gradient. RCA has a proximal 40% lesion. Left main small ramus, LAD, and circumflex do not have any significant disease. Filling pressures are normal. No gradient. LV-gram was not performed. RECOMMENDATIONS: Aggressive medical therapy with lipid-lowering strategy. Smoking and alcohol cessation were advised. Findings were discussed with the patient and also, Dr. Preston. I expect he will be discharged either later today or tomorrow. The patient did not wish that I speak to any family members. MMODL / IJN: [id number] / MTDD
[2022-10-04 09:30] LABS: ALT 63 U/L (4-49); AST 30 U/L (17-59); African American GFR (CKD) >90 (>60 ml/min/1.73 sqM); Albumin 3.9 g/dL (3.5-5.0); Alkaline Phosphatase 77 U/L (38-126); Anion Gap 6 mmol/L; Blood Urea Nitrogen 23 mg/dL (9-20); Calcium 9.1 mg/dL (8.4-10.2); Carbon Dioxide 25 mmol/L (22-30); Chloride 103 mmol/L (98-107); Glucose 118 mg/dL (74-99); Non-African American GFR(CKD) >90 (>60 ml/min/1.73 sqM); Potassium 4.7 mmol/L (3.5-5.1); Sodium 134 mmol/L (137-145); Total Bilirubin 0.7 mg/dL (0.2-1.3); Total Protein 6.6 g/dL (6.3-8.2)
[2022-10-04] MEDS: SPIRONOLACTONE 25 MG TAB PO SCH (10:20)
[2022-10-04] MEDS: LOSARTAN 50 MG TAB PO SCH (10:21)
[2022-10-04] MEDS: PANTOPRAZOLE 40 MG/10 ML VIAL IVP SCH (10:21)
[2022-10-04 10:27] LABS: Basophils % (A) 0 %; Eosinophils # (A) 0.1 k/uL (0-0.7); Eosinophils % (A) 2 %; HCT 50.4 % (39.0-53.0); HGB 16.4 gm/dL (13.0-17.5); Lymphocytes # (A) 1.5 k/uL (1.0-4.8); Lymphocytes % (A) 26 %; MCH 33.3 pg (25.0-35.0); MCHC 32.5 g/dL (31.0-37.0); MCV 102.4 fL (80.0-100.0); Macrocytosis Slight; Mean Platelet Volume 8.7; Monocytes # (A) 0.4 k/uL (0-1.0); Monocytes % (A) 8 %; Neutrophils # (A) 3.5 k/uL (1.3-7.7); Neutrophils % (A) 61 %; Platelet Count 247 k/uL (150-450); RBC 4.92 m/uL (4.30-5.90); RDW 12.9 % (11.5-15.5); WBC 5.7 k/uL (3.8-10.6)
[2022-10-04 11:47] VITALS: BP 115/75; PULSE 60; RESP 16; TEMP 98.2
[2022-10-04 11:49] LABS: Glucose,Whole Blood 99 mg/dL (70-110)
--- NOTE | 2022-10-04 12:10 | P.PN ---
Subjective Progress Note Date: 10/04/22 History of present illness: This is a 57 year old man with no prior cardiac history. He denies any past m edical history. He does not have a primary care physician and has not taking any home medications. Patient presented with complaints of shortness of breath and pressure in the lower rib area that is going on for a few weeks. The pain is mostly constant. During the night he is having sweats difficulty breathing which she thinks is a panic attack and isn't unable to sleep and stays awake until he has to go to work again. Patient is active tobacco smoker up to 2 packs per day, regular alcohol use. Patient presented with blood pressure of 170/103. EKG left bundle branch block Chest x-ray: No acute process. COPD CTA of the chest no evidence of pulmonary embolism. Cardiomegaly, pulmonary vascular congestion, trace pleural effusions. CBC unremarkable. D-dimer 1. INR 1. Potassium 4.3, BUN 19, creatinine 0.83. Troponin negative 2. TSH 2.08. Hemoglobin A1c 6.6. AST 136, ALT 136. Home cardiac medications: None 10/02 Patient is seen today in follow-up. He is currently on IV Lasix 40 mg daily. He states that shortness of breath is improved. He is able to lay flat in bed. His echocardiogram reveals EF of 35-40%. Mild right ventricular dilation. No mitral regurgitation. Trace tricuspid regurgitation. Results reviewed with the patient. Discussed need for absolute alcohol and smoking cessation. Plan to monitor patient on another 24-48 hours. Patient may still undergo cardiac catheterization during this hospitalization. 10/03 The patient states that he is feeling much better. No chest pain or shortness of breath. He has been able to ambulate with no lightheadedness or dizziness. Heart rate is in the 50s, blood pressure 118/79, telemetry is sinus rhythm. Echocardiogram reveals EF of 35-40% with mild right ventricular dilation. No MR. Trace TR. He underwent CAT scan of the abdomen and pelvis which did not reveal any acute findings. Abdominal ultrasound reveals hepatomegaly with hepatocellular disease or hepatic steatosis. Prominent pancreatic duct and dilated CBD. Patient verbalizes that he is concerned about seen in hospital due to [id number] cost to him. 10/04 Patient underwent cardiac catheterization this morning with Dr. LANDY Baig which r evealed right dominant system. Normal filling pressures and no gradient. RCA has a proximal 40% lesion. Left main small ramus, LAD and circumflex did not have any significant disease. Filling pressures are normal. No gradient. LV gram was not performed. Recommendations for medical management. Again discussed smoking and alcohol cessation with the patient. Medications the been reviewed and prescriptions have been sent to his pharmacy. Physical examination: Gen: This is a obese 57-year-old male. He is resting in bed and appears to be in no acute distress. Patient is able to lay flat. VS: reviewed HEENT: Head is atraumatic, normocephalic. Pupils equal, round. Sclerae is ani cteric. NECK: Supple. No JVD. LUNGS: Diminished bilaterally. No wheezes or rhonchi. No intercostal retractions. HEART: Regular rate and rhythm. No murmur. ABDOMEN: Soft No tenderness. EXTREMITIES: No pedal edema. No calf tenderness. NEUROLOGICAL: Patient is awake, alert and oriented x3. Assessment: Chest pain, acute coronary syndrome ruled out Dyspnea secondary to acute heart failure Cardiomyopathy unclear etiology Active tobacco use and dependence Regular alcohol use New diagnosis of diabetes. Attending to addressed Plan: Continue patient on current cardiac medications, prescriptions for all have been sent to his pharmacy Patient is cleared for discharge from cardiology and will follow-up with Dr. Preston in the office in one week Nurse practitioner note has been reviewed, I agree with documented findings and plan of care. Patient was seen and examined. Objective - Vital Signs Vital signs: Vital Signs Temp 98.4 F 10/04/22 08:27 Pulse 70 10/04/22 08:27 Resp 18 10/04/22 08:27 BP 128/86 10/04/22 08:27 Pulse Ox 96 10/04/22 08:59 FiO2 Intake & Output 10/03/22 10/04/22 10/04/22 18:59 06:59 18:59 Intake Total 716 650 Balance 716 650 Weight 96.4 kg Intake: IV 250 Oral 716 400 Other: Voiding Method Toilet Toilet # Voids 2 2 # Bowel Movements 1 - Labs CBC & Chem 7: 10/04/22 08:38 10/04/22 08:38 Labs: Abnormal Lab Results - Last 24 Hours (Table) 10/03/22 10/03/22 10/03/22 Range/Units 07:56 16:24 20:29 POC Glucose (mg/dL) 112 H 212 H (70-110) mg/dL Hemoglobin A1c 6.5 H (<=6.0) % 10/04/22 Range/Units 05:59 POC Glucose (mg/dL) 133 H (70-110) mg/dL Hemoglobin A1c (<=6.0) %
--- NOTE | 2022-10-04 13:50 | P.DS ---
Providers Date of admission: 10/01/22 00:05 Expected date of discharge: 10/04/22 Attending physician: Ritesh Norris Consults: 10/01/22 00:03 Consult Physician Routine Consulting Provider: Wilmar Lopez Consult Reason/Comments: chest pain. Bundle branch block Do you want consulting provider notified?: Yes Primary care physician: Leon Case Hospital Course: Discharge diagnoses; Chest pain Hypertension GERD Tobacco addiction Elevated LFTs New diagnosis diabetes mellitus Hospital course; patient is a 57-year-old gentleman with no significant past medical history not on any home medications and to the ER because of feeling of not feeling well for the last few days. Patient stated that for the last few days he has been noticing that he has been having this epigastric pain associated with decreased appetite. Patient also noticed that he was getting short of breath on exertion with reduced exercise tolerance. Patient complaining of decreased sleep, feelings of lethargic throughout the day. Denies any altered bowel movements, complaining of occasional nausea not associated with any vomiting. Denies any swelling of lower extremities. Denies any orthopnea or PND. Because of this constellation of symptoms, patient came to the ER Initial lab work in the ER showed white count 8.4, hemoglobin 15.1, platelet count 253, d-dimer was 1, sodium 138, potassium 4.3, BUN 19, creatinine 0.[address] chest showed no evidence of PE, showed cardiomegaly with pulmonary venous c ongestion Chest x-ray negative for acute cardiac process. Patient admitted to internal medicine service 10/02. Patient seen and examined. Denies any chest pain. Denies any shortness of breath. Denies any abdominal pain 10/03. Patient seen and examined. Denies any chest pain. Laying comfortably in the bed he had sodium this morning is 136, BUN 20, creatinine 1.05 10/04. Patient seen and examined. WBC 5.7, hemoglobin 16.4, sodium 134, potassium 4.7, BUN 23, creatinine to 0.92 .10/04 Patient underwent cardiac catheterization which revealed right dominant system. Normal filling pressures and no gradient. RCA has a proximal 40% lesion. Left main small ramus, LAD and circumflex did not have any significant disease. Filling pressures are normal. Cardiology recommended medical management. PHYSICAL EXAMINATION: GENERAL: The patient is alert and oriented x3, not in any acute distress. Well developed, well nourished. HEENT: Pupils are round and equally reacting to light. EOMI. No scleral icterus. No conjunctival pallor. Normocephalic, atraumatic. No pharyngeal erythema. No thyromegaly. CARDIOVASCULAR: S1 and S2 present. No murmurs, rubs, or gallops. PULMONARY: Chest is clear to auscultation, no wheezing or crackles. ABDOMEN: Soft, nontender, nondistended, normoactive bowel sounds. No palpable organomegaly. MUSCULOSKELETAL: No joint swelling or deformity. EXTREMITIES: No cyanosis, clubbing, or pedal edema. NEUROLOGICAL: Gross neurological examination did not reveal any focal deficits. SKIN: No rashes. Patient Condition at Discharge: Good Plan - Discharge Summary Discharge Rx Participant: No New Discharge Prescriptions: New Spironolactone [Aldactone] 25 mg PO DAILY #90 tab Aspirin 81 mg PO DAILY tab carvediloL [Coreg] 3.125 mg PO BID-W/MEALS #180 tab Losartan [Cozaar] 50 mg PO DAILY #90 tab Atorvastatin Calcium 10 mg PO DAILY #90 tablet Glimepiride [Amaryl] 1 mg PO AC-BRKFST #30 tab Furosemide [Lasix] 40 mg PO DAILY #90 tab Discharge Medication List Aspirin 81 mg PO DAILY tab 10/04/22 [Rx] Atorvastatin Calcium 10 mg PO DAILY #90 tablet 10/04/22 [Rx] Furosemide [Lasix] 40 mg PO DAILY #90 tab 10/04/22 [Rx] Glimepiride [Amaryl] 1 mg PO AC-BRKFST #30 tab 10/04/22 [Rx] Losartan [Cozaar] 50 mg PO DAILY #90 tab 10/04/22 [Rx] Spironolactone [Aldactone] 25 mg PO DAILY #90 tab 10/04/22 [Rx] carvediloL [Coreg] 3.125 mg PO BID-W/MEALS #180 tab 10/04/22 [Rx] Follow up Appointment(s)/Referral(s): Steve Preston MD [STAFF PHYSICIAN] - 1 Week Leon Case MD [Primary Care Provider] - 1-2 days Activity/Diet/Wound Care/Special Instructions: Glucometer and testing supplies are in [facility]. Discharge Disposition: HOME SELF-CARE
[2022-10-04] MEDS: FUROSEMIDE 40 MG TAB PO SCH (13:59)
[2022-10-05] MEDS ORDERED: ASPIRIN 81 MG PO SCH (09:00)
== END 2022-10-04 15:20 | disposition home or self-care (01) | DRG 287 ==
LOC: EC 20:41 → 3SCARD 10-01 00:05
PROVIDERS: ADMIT Hospitalist; ATTEND Hospitalist
PROC: 4A023N7 Measurement of Cardiac Sampling and Pressure, Left Heart, Percutaneous Approach (ICD-10-PCS; principal; 2022-10-04 07:15)
PROC: B2111ZZ Fluoroscopy of Multiple Coronary Arteries using Low Osmolar Contrast (ICD-10-PCS; principal; 2022-10-04 07:15)
DX: I11.0 Hypertensive heart disease with heart failure (principal); I44.7 Left bundle-branch block, unspecified; I50.9 Heart failure, unspecified; I42.9 Cardiomyopathy, unspecified; F41.0 Panic disorder [episodic paroxysmal anxiety]; I25.10 Atherosclerotic heart disease of native coronary artery without angina pectoris; J44.9 Chronic obstructive pulmonary disease, unspecified; K21.9 Gastro-esophageal reflux disease without esophagitis; F17.210 Nicotine dependence, cigarettes, uncomplicated; Z79.899 Other long term (current) drug therapy; E11.9 Type 2 diabetes mellitus without complications; R94.5 Abnormal results of liver function studies; M54.30 Sciatica, unspecified side; G89.29 Other chronic pain; F40.240 Claustrophobia; K76.0 Fatty (change of) liver, not elsewhere classified; K83.8 Other specified diseases of biliary tract; Z82.49 Family history of ischemic heart disease and other diseases of the circulatory system; Z82.5 Family history of asthma and other chronic lower respiratory diseases
CPT/HCPCS: 36415; 71046; 71275; 74177; 76700; 80048; 80053; 80061; 83036; 83735; 84443; 84484; 85025; 85379; 85610; 85730; 93005; 93306; 93458; 94760; 99285